=== PATIENT | female | born 1945 | race Caucasian/White ===

== ENCOUNTER 2019-03-12 15:18 | Inpatient (IN) ==
[2019-03-12] MEDS ORDERED: IOPAMIDOL 100 ML BOTTLE IV ONE (15:19)
[2019-03-12] MEDS: HYDROmorphone 2 MG/ML VIAL IV PRN ×3 (15:42→18:00)
[2019-03-12] MEDS ORDERED: IPRATROPIUM/ALBUTEROL 3 ML AMPUL.NEB NEB ONE (16:19)
--- NOTE | 2019-03-12 16:24 | Emergency Department Note ---
General Adult HPI - General Chief complaint: Rib Pain Stated complaint: Left Side Pain Time Seen by Provider: 03/12/19 15:30 Source: patient Mode of arrival: wheelchair Limitations: no limitations - History of Present Illness HPI Narrative: 73-year-old female complains of shortness of breath despite using her home 4 L of oxygen [id number]. She is got severe COPD and a history of esophageal cancer. She is having chest pain on the left radiates from the center of her chest up to her left shoulder. She states that it feels like the time she had a collapsed lung on the right. No fever. She saw her airport utility worker Dr. Jones last week - Related Data Home Medications Medication Instructions Recorded Confirmed atorvastatin 20 mg tablet 20 mg PO .COMPLEX 12/16/16 03/05/19 gabapentin 300 mg capsule 300 mg PO QID cap 12/16/16 03/05/19 levothyroxine 25 mcg tablet 25 mcg PO QDAY 12/16/16 03/05/19 nystatin 100,000 unit/gram topical 1 applic TOPICAL BID 12/16/16 03/05/19 cream nystatin 100,000 unit/mL oral 1,000,000 unit BUCCAL QID 12/16/16 03/05/19 suspension ondansetron 8 mg disintegrating 8 mg PO TID tab 12/16/16 03/05/19 tablet oxygen INTRANASAL 12/16/16 03/05/19 hydrocodone 10 mg-acetaminophen 1 tab PO ONCE PRN 01/12/17 03/05/19 325 mg tablet omeprazole 20 mg tablet,delayed 20 mg PO QDAY tab 03/05/19 03/05/19 release Previous Rx's Medication Instructions Recorded albuterol sulfate concentrate 2.5 2.5 mg INHALATION QHS PRN #60 each 10/11/18 mg/0.5 mL solution for nebulization chlorhexidine gluconate 0.12 % 15 ml MUCOUS MEM BID #900 ml 12/19/18 mouthwash fluticasone fur. 100 mcg-umeclid 1 inh INHALATION QDAY #180 each 12/19/18 62.5 mcg-vilant 25 mcg inhalat.powder albuterol sulfate 90 mcg/actuation 2 inh INHALATION Q4H PRN #1 each 02/15/19 breath activated powder inhaler prednisone 5 mg/5 mL oral solution 20 mg PO QDAY #200 ml 03/05/19 Allergies Allergy/AdvReac Type Severity Reaction Status Date / Time Milk Containing Products Allergy Severe Other Verified 03/05/19 15:00 Penicillins Allergy Severe SEVERE Verified 03/05/19 15:00 ITCHING ioversol [From OPTIRAY 320] Allergy Mild Hives Verified 03/05/19 15:00 carbamazepine [From TEGRETOL] AdvReac Intermediate LOSS OF Verified 03/05/19 15:00 SELF-AWARENESS Tetanus Vaccines and Toxoid AdvReac Mild INJ SITE Verified 03/05/19 15:00 SWELLING, AND JAW PAIN SILK TAPE AdvReac Mild BLISTERS, Uncoded 03/05/19 15:00 TEARS SKIN Review of Systems All systems ED: reviewed and negative except as stated. Past Medical History - Past Medical History Attestation: Yes: The following information was validated with the patient. [facility] Narrative: Family History (Last Reviewed 03/05/19 @ 15:19 by Maninder Jones MD) Mother Brain cancer Breast cancer Cervical cancer Father Alcoholism Son Multiple sclerosis Medical History (Last Reviewed 03/05/19 @ 15:19 by Maninder Jones MD) Bronchiectasis (Chronic) Cough (Chronic) Cough with hemoptysis (Chronic) Epigastric pain (Chronic) Pneumonia (Chronic) Personal history of malignant neoplasm of larynx (Chronic) Adjustment disorder with mixed anxiety and depressed mood (Chronic) COPD (chronic obstructive pulmonary disease) (Chronic) Other organic insomnia (Chronic) Other osteoporosis (Chronic) GERD (gastroesophageal reflux disease) (Chronic) Unspecified vitamin D deficiency (Chronic) Other specified anemias (Chronic) Dysphagia, oral phase (Chronic) Lumbago (Chronic) Decreased strength (Chronic) Constipation due to pain medication (Chronic) Pulmonary nodule (Chronic) Peripheral neuropathy (Chronic) Hypothyroidism (Chronic) Hypertension (Chronic) Pulmonary fibrosis (Chronic) Emphysema, unspecified (Chronic) Acute bronchitis (Chronic) Scoliosis deformity of spine (Chronic) Bowel obstruction (Resolved) Cholecystectomy planned (Resolved) Past Surgical History (Last Reviewed 03/05/19 @ 15:19 by Maninder Jones MD) No pertinent past surgical history (Chronic) History of appendectomy (Resolved) Hx of tonsillectomy (Resolved) Previous back surgery (Resolved) Medical history: Reports: COPD, hyperlipidemia, hypertension, hypothyroidism Surgical history ED: Reports: appendectomy, cholecystectomy, hysterectomy, orthopedic, other (Back surgery multiple), tonsillectomy, other (Thyroglossal duct cyst) - Social History smoking status: Current every day smoker Alcohol use: Reports: None Drug use: Reports: marijuana Physical Exam Thin female no acute distress. Normocephalic atraumatic. Conjunctive are clear sclerae white anicteric. No nasal discharge or congestion. Wearing mask oxygen 4 L. Oropharynx pink and moist. Posterior pharynx is clear. Neck is supple without lymphadenopathy or thyromegaly. Heart is regular rate and rhythm. Inferiorly displaced PMI. Lungs are basically clear to auscultation but she does have end expiratory wheeze worse on the left. I do not hear any rales. Abdomen is soft nontender nondistended except for the epigastric area which is mildly tender. No pedal edema. +2 radial pulse. Alert oriented able to answer questions appropriately Limitations: no limitations Course Vital Signs Temperature 98.7 F 03/12/19 15:19 Pulse Rate 83 03/12/19 15:19 Respiratory Rate 30 H 03/12/19 15:19 Blood Pressure 162/58 03/12/19 15:19 Pulse Oximetry (%) 99 03/12/19 15:19 Temperature 99.6 F H 03/12/19 16:00 Pulse Rate 66 03/12/19 17:38 Respiratory Rate 18 03/12/19 16:00 Blood Pressure 120/102 03/12/19 17:32 Pulse Oximetry (%) 95 03/12/19 17:38 Medical Decision Making - Lab Data Lab results reviewed: Yes I reviewed the patient's lab results. Result diagrams: 03/12/19 16:40 03/12/19 16:39 Lab Results 03/12/19 03/12/19 03/12/19 Range/Units 16:39 16:40 16:40 WBC 24.8 H (4.5-11.0) K/mcL RBC 4.60 (4.00-5.20) M/mcL Hgb 13.4 (12.0-15.0) g/dL Hct 40.6 (36.0-48.0) % POC Hct 39.0 (36.0-48.0) % MCV 88.1 (80.0-100.0) fL MCH 29.1 (26.0-34.0) pg MCHC 33.0 (31.0-36.0) g/dL RDW 17.4 H (11.5-14.5) % Plt Count 314 (140-440) K/mcL MPV 7.5 (7.4-10.4) fL Gran % 96.7 H (38.0-78.0) % Lymph % (Auto) 2.0 L (15.5-49.0) % Turner % (Auto) 1.3 (1.0-12.0) % Eos % (Auto) 0 (0.0-7.0) % Baso % (Auto) 0 (0.0-2.0) % Gran # 23.9 H (1.8-8.0) K/mcL Lymph # (Auto) 0.5 L (1.5-4.8) K/mcL Turner # (Auto) 0.3 (0.1-0.9) K/mcL Eos # (Auto) 0 (0.0-0.7) K/mcL Baso # (Auto) 0 (0.0-0.3) K/mcL VBG Lactic Acid 1.4 (0.5-2.0) mmol/L POC Sodium 136 (133-145) mmol/L Sodium 137 (133-145) mmol/L POC Potassium 4.2 (3.3-5.1) mmol/L Potassium 4.5 (3.3-5.1) mmol/L POC Chloride 94 L (96-108) mmol/L Chloride 91 L (96-108) mmol/L Carbon Dioxide 32 H (22-30) mmol/L POC Total CO2 31 H (22-30) mmol/L Anion Gap 14.0 (8-16) POC BUN 18 (8-23) mg/dl BUN 18 (8-23) mg/dl Creatinine 0.8 (0.6-1.1) mg/dl POC Creatinine 0.8 (0.6-1.1) mg/dl GFR Calculation 74 Glucose 98 (70-105) mg/dL POC Glucose 117 H (70-105) mg/dL Calcium 9.3 (8.6-10.4) mg/dl POC WB Ioniz Calcium 1.13 L (1.16-1.32) mmol/L Magnesium 1.9 (1.6-2.5) mg/dL Total Bilirubin 0.6 (0.0-1.0) mg/dL AST 27 (0-37) U/l ALT 17 (0-40) U/l Alkaline Phosphatase 65 (39-117) U/L Troponin T (0-0.03) ng/ml Total Protein 8.6 H (5.9-8.4) gm/dL Albumin 4.0 (3.2-5.2) gm/dL Globulin 4.6 H (2.2-3.7) gm/dL Albumin/Globulin Ratio 0.9 L (1.0-2.3) Procalcitonin (<0.10) ng/mL 03/12/19 03/12/19 Range/Units 16:40 16:40 WBC (4.5-11.0) K/mcL RBC (4.00-5.20) M/mcL Hgb (12.0-15.0) g/dL Hct (36.0-48.0) % POC Hct (36.0-48.0) % MCV (80.0-100.0) fL MCH (26.0-34.0) pg MCHC (31.0-36.0) g/dL RDW (11.5-14.5) % Plt Count (140-440) K/mcL MPV (7.4-10.4) fL Gran % (38.0-78.0) % Lymph % (Auto) (15.5-49.0) % Turner % (Auto) (1.0-12.0) % Eos % (Auto) (0.0-7.0) % Baso % (Auto) (0.0-2.0) % Gran # (1.8-8.0) K/mcL Lymph # (Auto) (1.5-4.8) K/mcL Turner # (Auto) (0.1-0.9) K/mcL Eos # (Auto) (0.0-0.7) K/mcL Baso # (Auto) (0.0-0.3) K/mcL VBG Lactic Acid (0.5-2.0) mmol/L POC Sodium (133-145) mmol/L Sodium (133-145) mmol/L POC Potassium (3.3-5.1) mmol/L Potassium (3.3-5.1) mmol/L POC Chloride (96-108) mmol/L Chloride (96-108) mmol/L Carbon Dioxide (22-30) mmol/L POC Total CO2 (22-30) mmol/L Anion Gap (8-16) POC BUN (8-23) mg/dl BUN (8-23) mg/dl Creatinine (0.6-1.1) mg/dl POC Creatinine (0.6-1.1) mg/dl GFR Calculation Glucose (70-105) mg/dL POC Glucose (70-105) mg/dL Calcium (8.6-10.4) mg/dl POC WB Ioniz Calcium (1.16-1.32) mmol/L Magnesium (1.6-2.5) mg/dL Total Bilirubin (0.0-1.0) mg/dL AST (0-37) U/l ALT (0-40) U/l Alkaline Phosphatase (39-117) U/L Troponin T < 0.01 (0-0.03) ng/ml Total Protein (5.9-8.4) gm/dL Albumin (3.2-5.2) gm/dL Globulin (2.2-3.7) gm/dL Albumin/Globulin Ratio (1.0-2.3) Procalcitonin 0.18 (<0.10) ng/mL ABG consistent with hyperventilation - Radiology Data Radiology results reviewed: Yes I reviewed the patient's radiology results. Chest x-ray with right rib series does not show acute findings. CT scan ordered CT scan shows left lower lobe infiltrate. Disposition Pt seen by WAREHOUSE REPRESENTATIVE/PA only: No Clinical Impression: Pneumonia Qualifiers: Pneumonia type: due to unspecified organism Laterality: left Lung location: lower lobe of lung Qualified Code(s): J18.1 - Lobar pneumonia, unspecified organism COPD (chronic obstructive pulmonary disease) Qualifiers: COPD type: unspecified COPD Qualified Code(s): J44.9 - Chronic obstructive pulmonary disease, unspecified Summary: Initial work-up was with x-ray but this was unrevealing. CT scan ordered along with laboratory. Continue oxygen CT showed left lower lobe pneumonia. Blood cultures started along with antibiotics. Blood gas shows compensation. Discussed case with Dr. Reveles. Patient needs inpatient treatment of COPD/left lower lobe pneumonia because of increased work of breathing. He agreed to accept patient Disposition: Xfer As Inpt ([facility] Condition: Fair Referrals: Josseline Kyle ARNP [Primary Care Provider] -
--- NOTE | 2019-03-12 16:30 | XRay Report ---
CLINICAL INFORMATION: right rib pain COMPARISON: Chest x-ray 03/05/2019 FINDINGS:Heart size, mediastinum and pulmonary vessels are normal. COPD changes again noted. Small infiltrate has developed in the lingular region. Small left pleural effusion noted. Left ribs are normal IMPRESSION: Moderate centrilobular emphysema changes. New moderate lingular infiltrate. Left ribs normal Interpreted and Authenticated by: Jin Foote 03/12/19
[2019-03-12 16:45] LABS: POC Blood Urea Nitrogen 18 mg/dl (8-23); POC CO2 31 mmol/L (22-30); POC Calcium, Ionized 1.13 mmol/L (1.16-1.32); POC Chloride 94 mmol/L (96-108); POC Creatinine 0.8 mg/dl (0.6-1.1); POC Glucose, Random 117 mg/dL (70-105); POC Potassium 4.2 mmol/L (3.3-5.1); POC Sodium 136 mmol/L (133-145)
[2019-03-12] MEDS ORDERED: diphenhydrAMINE 50 MG/ML VIAL IV ONE (17:05)
[2019-03-12 17:22] LABS: Basophils # (Auto) 0 K/mcL (0.0-0.3); Basophils % (Auto) 0 % (0.0-2.0); Eosinophils # (Auto) 0 K/mcL (0.0-0.7); Eosinophils % (Auto) 0 % (0.0-7.0); Granulocytes % (Auto) 96.7 % (38.0-78.0); Hematocrit 40.6 % (36.0-48.0); Hemoglobin 13.4 g/dL (12.0-15.0); Lymphocytes # (Auto) 0.5 K/mcL (1.5-4.8); Mean Cell Volume 88.1 fL (80.0-100.0); Mean Platelet Volume 7.5 fL (7.4-10.4); Monocytes # (Auto) 0.3 K/mcL (0.1-0.9); Monocytes % (Auto) 1.3 % (1.0-12.0); Platelet Count 314 K/mcL (140-440); Red Cell Distribution Width 17.4 % (11.5-14.5); WBC 24.8 K/mcL (4.5-11.0)
[2019-03-12 17:36] LABS: ALT/SGPT 17 U/l (0-40); AST/SGOT 27 U/l (0-37); Albumin/Globulin Ratio 0.9 (1.0-2.3); Alkaline Phosphatase 65 U/L (39-117); Bilirubin,Total 0.6 mg/dL (0.0-1.0); Blood Urea Nitrogen 18 mg/dl (8-23); Calcium 9.3 mg/dl (8.6-10.4); Carbon Dioxide 32 mmol/L (22-30); Chloride 91 mmol/L (96-108); Globulin 4.6 gm/dL (2.2-3.7); Glomerular Filtration Rate 74; Glucose 98 mg/dL (70-105)
[2019-03-12] MEDS ORDERED: LEVOFLOXACIN 500 MG/100 ML BAG IV ONE (18:23)
--- NOTE | 2019-03-12 18:28 | Cat Scan Report ---
CLINICAL INFORMATION: COPD and pulmonary fibrosis. Dyspnea COMPARISON: 06/05/[address] TECHNIQUE: 80 cc of Isovue-370 were injected intravenously, and 25 seconds later, 0.625 mm helical slices were obtained from the lung apices through the bases. Following reconstruction, 2.5 mm sagittal, coronal and axial reformations were processed and reviewed at lung, mediastinal and bone windows. 7 mm axial MIPS were also obtained to optimize pulmonary nodule detection. The exam was performed using radiation dose optimization techniques including, but not limited to, automated exposure control, adjustment of the mA and/or kV according to patient size and use of iterative reconstruction technique. FINDINGS: Moderate centrilobular emphysema featuring chronic bronchitis (wall thickening of the bronchi and elevated lung volumes) with multiple bullae predominantly in the upper lobes with show slight progression. Complete chronic right middle lobe atelectasis is seen as before. Moderate consolidated infiltrate in the posterior left lower lobe is new from previous study. There are scattered interstitial fibrosis in both lower lobes. A 6 mm nodule in the anterior segment right upper lobe, image 35, demonstrates long-term stability. A 6 mm subpulmonic lymph node in the anterior segment right upper lobe is also unchanged. There are no new or enlarging nodules. No effusions. Mediastinal windows show mild enlargement of the central pulmonary arteries: the main pulmonary diameter is 3.7 cm compatible with pulmonary hypertension. The thoracic aorta is normal diameter with diffuse intimal thickening. Mildly enlarged lymph nodes in lower mediastinum including the pericarinal AP window and subcarinal regions ranging up to 18 mm in the precarinal region. These demonstrate long-term stability and presumably benign reactive lymph nodes. Esophagus is grossly normal. No thyroid abnormality. Mild old compression fractures upper thoracic spine are stable. Images should the superior abdomen show no abnormality. PEG tube is properly positioned through the anterior wall of the gastric body with the pigtail in the gastric lumen. IMPRESSION: 1. Moderate consolidated infiltrate, likely pneumonia, in the posterior left lower lobe. This is new from chest CT nearly 2 years ago. 2. Moderate centrilobular emphysema 3. Mild central pulmonary enlargement patible with pulmonary hypertension. 4. Complete chronic right middle lobe atelectasis - stable. 5. Right lung nodules demonstrate long-term stability no evidence of pulmonary malignancy. 6. Diminutive thyroid. Please correlate with TSH Interpreted and Authenticated by: Jin Foote 03/12/19
[2019-03-12] MEDS ORDERED: NICOTINE 14 MG PATCH TOPICAL ONE (18:54)
--- NOTE | 2019-03-12 20:09 | Internal Med History&Physical ---
Medical - H&P: HPI Patient information: Note initiated : 03/12/19 at 8:05 pm Service Date, if different from initiated Date: [] Patient: Kassidy Dawson a 73 y/o F admitted on for Left Side Pain. Chief Complaint: [] History of present illness: Ms. Dawson is a 73 year old F Presents the ED with left lateral chest wall pain. And shortness of breath secondary to pleuritic chest pain. She recently saw Dr. Jones about a week ago and was diagnosed with COPD exacerbation and started on a steroid taper. At that time she had a cough that was worse and she felt quite wheezy, both of which are improving. However this morning she woke up with a sharp achy pain left lateral chest wall that radiated up into the upper chest wall. Because of the severity of it she could not take a deep breath and thus became short of breath. She is able to maintain her oxygen on her typical 4 L however it is very painful to breathe. Work-up in the ED showed a leukocytosis of 25, however she has been on prednisone for the past 5 days. She is felt chilled but no fevers. She is tachypneic in the ED. Troponin was unremarkable and lactate was okay. Procalcitonin unremarkable. ABG with pH 7.48 CO2 45 Chest x-ray was done and then subsequent CT which showed a moderate consolidated infiltrate posterior left lower lobe. Admission was requested given the severity of her symptoms and the debilitated chronic state of her lungs. She complains of headache as well but no other complaints. Denies any leg pain or swelling, no history of blood clots, she is not tachycardic and not hypoxic beyond her baseline. Review of Systems: pertinent positives as above. denies fever/nausea/vomiting/abdominal pain//diarrhea. Remaining 10 point review of system reviewed negative Medical - H&P: PMH Medical history: Medical History (Last Reviewed 03/05/19 @ 15:19 by Maninder Jones MD) Bronchiectasis (Chronic) Cough (Chronic) Cough with hemoptysis (Chronic) Epigastric pain (Chronic) Pneumonia (Chronic) Personal history of malignant neoplasm of larynx (Chronic) Adjustment disorder with mixed anxiety and depressed mood (Chronic) COPD (chronic obstructive pulmonary disease) (Chronic) Other organic insomnia (Chronic) Other osteoporosis (Chronic) GERD (gastroesophageal reflux disease) (Chronic) Unspecified vitamin D deficiency (Chronic) Other specified anemias (Chronic) Dysphagia, oral phase (Chronic) Lumbago (Chronic) Decreased strength (Chronic) Constipation due to pain medication (Chronic) Pulmonary nodule (Chronic) Peripheral neuropathy (Chronic) Hypothyroidism (Chronic) Hypertension (Chronic) Pulmonary fibrosis (Chronic) Emphysema, unspecified (Chronic) Acute bronchitis (Chronic) Scoliosis deformity of spine (Chronic) Bowel obstruction (Resolved) Cholecystectomy planned (Resolved) Past Surgical History (Last Reviewed 03/05/19 @ 15:19 by Maninder Jones MD) No pertinent past surgical history (Chronic) History of appendectomy (Resolved) Hx of tonsillectomy (Resolved) Previous back surgery (Resolved) Family History (Last Reviewed 03/05/19 @ 15:19 by Maninder Jones MD) Mother Brain cancer Breast cancer Cervical cancer Father Alcoholism Son Multiple sclerosis Social History (Last Updated 03/05/19 @ 15:30 by Maninder Jones MD) Smokes half pack cigarettes per day Denies alcohol use Ambulates with a walker and is quite sedentary Lives with family Medical - H&P: Meds Home Medications Medication Instructions Recorded Confirmed Type atorvastatin 20 mg tablet 20 mg PO .COMPLEX 12/16/16 03/05/19 History gabapentin 300 mg capsule 300 mg PO QID cap 12/16/16 03/05/19 History levothyroxine 25 mcg tablet 25 mcg PO QDAY 12/16/16 03/05/19 History nystatin 100,000 unit/gram topical 1 applic TOPICAL BID 12/16/16 03/05/19 History cream nystatin 100,000 unit/mL oral 1,000,000 unit BUCCAL QID 12/16/16 03/05/19 History suspension ondansetron 8 mg disintegrating 8 mg PO TID tab 12/16/16 03/05/19 History tablet oxygen INTRANASAL 12/16/16 03/05/19 History hydrocodone 10 mg-acetaminophen 1 tab PO ONCE PRN 01/12/17 03/05/19 History 325 mg tablet albuterol sulfate concentrate 2.5 2.5 mg INHALATION QHS PRN #60 each 10/11/18 03/05/19 Rx mg/0.5 mL solution for nebulization chlorhexidine gluconate 0.12 % 15 ml MUCOUS MEM BID #900 ml 12/19/18 03/05/19 Rx mouthwash fluticasone fur. 100 mcg-umeclid 1 inh INHALATION QDAY #180 each 12/19/1809/18 Rx 62.5 mcg-vilant 25 mcg inhalat.powder albuterol sulfate 90 mcg/actuation 2 inh INHALATION Q4H PRN #1 each 02/15/19 03/05/19 Rx breath activated powder inhaler omeprazole 20 mg tablet,delayed 20 mg PO QDAY tab 03/05/19 03/05/19 History release prednisone 5 mg/5 mL oral solution 20 mg PO QDAY #200 ml 03/05/19 03/05/19 Rx Allergies Allergy/AdvReac Type Severity Reaction Status Date / Time Milk Containing Products Allergy Severe Other Verified 03/05/19 15:00 Penicillins Allergy Severe SEVERE Verified 03/05/19 15:00 ITCHING ioversol [From OPTIRAY 320] Allergy Mild Hives Verified 03/05/19 15:00 carbamazepine [From TEGRETOL] AdvReac Intermediate LOSS OF Verified 03/05/19 15:00 SELF-AWARENESS Tetanus Vaccines and Toxoid AdvReac Mild INJ SITE Verified 03/05/19 15:00 SWELLING, AND JAW PAIN SILK TAPE AdvReac Mild BLISTERS, Uncoded 03/05/19 15:00 TEARS SKIN Medical - H&P: Exam - Constitutional Vitals: Temp Pulse Resp BP Pulse Ox 99.6 F H 66 18 121/70 95 03/12/19 16:00 03/12/19 17:38 03/12/19 16:00 03/12/19 19:31 03/12/19 17:38 Exam: General: Alert, Awake, No acute Distress Eyes/N/T: EOMI, PEERL, DMM Head/Neck: neck supple, normocephalic atraumatic CV: RRR, No murmurs, normal s1/s2 Pulm: Mild fine rales throughout and increased rhonchi rales left base, no wheezing noted abd: soft, nontender, +BS x4 Ext: no clubbing/cyanosis/edema Neuro: Alert, no focal deficits, moves all extremities, CN 2-12 grossly intact, symmetrical strength b/l upper/lower, sensations intact b/l upper/lower Skin: warm/dry Medical - H&P: Reslt - Labs CBC & Chem 7: 03/12/19 16:40 03/12/19 16:39 Labs: Short CBC 03/12/19 Range/Units 16:40 WBC 24.8 H (4.5-11.0) K/mcL Hgb 13.4 (12.0-15.0) g/dL Hct 40.6 (36.0-48.0) % Plt Count 314 (140-440) K/mcL BMP 03/12/19 16:39 Sodium 137 Potassium 4.5 Chloride 91 L Carbon Dioxide 32 H BUN 18 Creatinine 0.8 Glucose 98 Calcium 9.3 Cardiac Enzymes 03/12/19 Range/Units 16:40 Troponin T < 0.01 (0-0.03) ng/ml Liver Function 03/12/19 Range/Units 16:39 Total Bilirubin 0.6 (0.0-1.0) mg/dL AST 27 (0-37) U/l ALT 17 (0-40) U/l Alkaline Phosphatase 65 (39-117) U/L Albumin 4.0 (3.2-5.2) gm/dL - Impressions CT with moderate dense consolidation of left lower lobe Medical - H&P: A/P - Narrative A/P Narrative: A: *PNA (LLL) w/Pleuritic left lower chest wall pain: *Chronic respiratory failure with hypoxia/hypercapnia: *Metabolic alkalosis w/concomitant and respiratory acidosis: 2/2 above *Advanced COPD/Emphysema (4L O2 at home): *Bronchiectasis: *Pulmonary fibrosis: *GERD: *Chronic pain: *Hypothyroidism: * P: -Rocephin/azithromycin -Pending BC/SC -PRN and scheduled nebs -IS/Acapella, RT support -Continue prednisone -Check manual differential and CRP - - -ppx: Lovenox full code
[2019-03-12] MEDS ORDERED: ACETAMINOPHEN 325 MG TABLET PO PRN (20:52)
[2019-03-12] MEDS ORDERED: IPRATROPIUM/ALBUTEROL 3 ML AMPUL.NEB NEB PRN (20:52)
[2019-03-12] MEDS ORDERED: 0.9 % SODIUM CHLORIDE 1,000 ML IV SCH (20:52)
[2019-03-12] MEDS ORDERED: MAGNESIUM HYDROXIDE 30 ML ORAL.SUSP PO PRN (20:52)
[2019-03-12] MEDS ORDERED: BISACODYL 10 MG SUPP.RECT PR PRN (20:52)
[2019-03-12] MEDS ORDERED: ONDANSETRON 4 MG/2 ML VIAL IV PRN (20:52)
[2019-03-12] MEDS ORDERED: PROMETHAZINE 25 MG/ML VIAL IV PRN (20:52)
[2019-03-12] MEDS: IPRATROPIUM/ALBUTEROL 3 ML AMPUL.NEB NEB SCH (21:06)
[2019-03-12 22:00] LABS: Anisocytosis 1+ (NONE SEEN); Band Neutrophils % 2 % (0-10); Lymphocytes % 3 % (15-49); Monocytes % (Manual) 5 % (1-12); Platelet Estimate NORMAL (NORMAL); RBC Morphology ABNORMAL (NORMAL); Segmented Neutrophils % 90 % (38-78)
[2019-03-12] MEDS ORDERED: cefTRIAXone 2 GM VIAL ONE (22:16)
[2019-03-12] MEDS: 0.9 % SODIUM CHLORIDE 10 ML SYRINGE IV SCH (22:23)
[2019-03-12] MEDS: GABAPENTIN 300 MG CAPSULE PO SCH (22:26)
[2019-03-12] MEDS: guaiFENesin 600 MG TAB.SR.12H PO SCH (22:26)
[2019-03-12] MEDS: cefTRIAXone 2 GM in DEXTROSE 5% IN WATER 50 ML IV SCH (23:19)
[2019-03-13] MEDS: AZITHROMYCIN 500 MG in DEXTROSE 5% IN WATER 250 ML IV SCH ×2 (00:34→21:16)
[2019-03-13] MEDS: HYDROcodone/APAP 10/325MG TABLET PO SCH ×5 (00:38→23:54)
[2019-03-13] MEDS: IPRATROPIUM/ALBUTEROL 3 ML AMPUL.NEB NEB SCH ×3 (04:57→19:45)
[2019-03-13] MEDS: 0.9 % SODIUM CHLORIDE 10 ML SYRINGE IV SCH ×3 (04:58→22:05)
[2019-03-13 05:59] LABS: Basophils # (Auto) 0 K/mcL (0.0-0.3); Basophils % (Auto) 0.3 % (0.0-2.0); Eosinophils # (Auto) 0.1 K/mcL (0.0-0.7); Eosinophils % (Auto) 0.8 % (0.0-7.0); Granulocytes % (Auto) 71.3 % (38.0-78.0); Hematocrit 32.2 % (36.0-48.0); Hemoglobin 10.6 g/dL (12.0-15.0); Lymphocytes # (Auto) 1.7 K/mcL (1.5-4.8); Lymphocytes % (Auto) 15.6 % (15.5-49.0); Mean Cell Volume 89.6 fL (80.0-100.0); Mean Platelet Volume 7.3 fL (7.4-10.4); Monocytes # (Auto) 1.3 K/mcL (0.1-0.9); Platelet Count 252 K/mcL (140-440); RBC 3.59 M/mcL (4.00-5.20); Red Cell Distribution Width 17.3 % (11.5-14.5); WBC 10.9 K/mcL (4.5-11.0)
[2019-03-13 06:39] LABS: ALT/SGPT 12 U/l (0-40); AST/SGOT 11 U/l (0-37); Albumin/Globulin Ratio 0.8 (1.0-2.3); Alkaline Phosphatase 53 U/L (39-117); Bilirubin,Direct < 0.2 mg/dL (0.0-0.3); Bilirubin,Total 0.2 mg/dL (0.0-1.0); Blood Urea Nitrogen 21 mg/dl (8-23); Calcium 8.3 mg/dl (8.6-10.4); Carbon Dioxide 28 mmol/L (22-30); Chloride 97 mmol/L (96-108); Globulin 3.7 gm/dL (2.2-3.7); Glomerular Filtration Rate 87; Glucose 113 mg/dL (70-105); Lactate Dehydrogenase 107 U/L (94-250); Triglycerides 254 mg/dl (<150); Uric Acid 3.6 mg/dL (2.5-8.0)
[2019-03-13] MEDS: LEVOTHYROXINE 25 MCG TABLET PO SCH (07:08)
[2019-03-13] MEDS: predniSONE 20 MG TABLET PO SCH (07:08)
--- NOTE | 2019-03-13 07:16 | Internal Med Progress Note ---
Medical - PN: Subj Patient information: Note initiated : 03/13/19 at 7:10 am Service Date, if different from initiated Date: [] Patient: Kassidy Dawson a 73 y/o F admitted on 03/12/19 for Left Side Pain. Chief Complaint: [] Interval history: Ms. Dawson is a 73 year old F Presents the ED with left lateral chest wall pain. And shortness of breath secondary to pleuritic chest pain. She recently saw Dr. Jones about a week ago and was diagnosed with COPD exacerbation and started on a steroid taper. At that time she had a cough that was worse and she felt quite wheezy, both of which are improving. However this morning she woke up with a sharp achy pain left lateral chest wall that radiated up into the upper chest wall. Because of the severity of it she could not take a deep breath and thus became short of breath. She is able to maintain her oxygen on her typical 4 L however it is very painful to breathe. Work-up in the ED showed a leukocytosis of 25, however she has been on prednisone for the past 5 days. She is felt chilled but no fevers. She is tachypneic in the ED. Troponin was unremarkable and lactate was okay. Procalcitonin unremarkable. ABG with pH 7.48 CO2 45 Chest x-ray was done and then subsequent CT which showed a moderate consolidated infiltrate posterior left lower lobe. Admission was requested given the severity of her symptoms and the debilitated chronic state of her lungs. She complains of headache as well but no other complaints. Denies any leg pain or swelling, no history of blood clots, she is not tachycardic and not hypoxic beyond her baseline. 03/13 Feeling much better today. Feels like she can expand her lungs much better. Shortness of breath is 50% better. She is able to cough out phlegm now. Review of Systems: denies headache/fever/chills/nausea/vomiting/chest or abdominal pain/diarrhea. Otherwise see above. - Constitutional Vitals: Vital Signs Temp Pulse Resp BP Pulse Ox 97.5 F 63 16 105/53 95 03/13/19 03:40 03/13/19 03:40 03/13/19 03:40 03/13/19 03:40 03/13/19 03:40 Period Temp Pulse Resp BP Sys/Kelly Pulse Ox Last 24 Hr 97.5 F-99.6 F 55-83 16-30 105-162/53-106 94-100 Intake and Output 03/12/19 03/13/19 03/13/19 21:59 05:59 13:59 Intake Total 100 950 Output Total 350 Balance 100 600 Weight 55.928 kg Intake & Output: Intake & Output 03/12/19 03/13/19 03/13/19 21:59 05:59 13:59 Intake Total 100 950 Output Total 350 Balance 100 600 Weight 55.928 kg Intake: IV 100 Tube Feeding 950 Output: Void Amount 350 Exam: General: Alert, Awake, No acute Distress Eyes/N/T: EOMI, Head/Neck: neck supple, CV: RRR, No murmurs, Pulm: Improved rhonchi rales left base, no wheezing noted abd: soft, nontender, +BS x4 Ext: no clubbing/cyanosis/edema Neuro: Alert, no focal deficits, moves all extremities, Skin: warm/dry Medical - PN: Obj Da - Labs CBC & Chem 7: 03/13/19 04:25 03/13/19 04:25 Labs: Abnormal Lab Results 03/13/19 03/13/19 03/12/19 04:25 04:25 20:20 WBC RBC 3.59 L Hgb 10.6 L Hct 32.2 L RDW 17.3 H MPV 7.3 L Gran % Lymph % (Auto) Gran # Lymph # (Auto) [place] # (Auto) 1.3 H Seg Neutrophils % Lymphocytes % Anisocytosis POC Chloride Chloride Carbon Dioxide POC Total CO2 Glucose 113 H POC Glucose Calcium 8.3 L POC WB Ioniz Calcium C-Reactive Protein Total Protein Albumin 3.0 L Globulin Albumin/Globulin Ratio 0.8 L Triglycerides 254 H Ur Strep pneumoniae Ag Positive A 03/12/19 03/12/19 03/12/19 16:49 16:49 16:40 WBC 24.8 H RBC Hgb Hct RDW 17.4 H MPV Gran % 96.7 H Lymph % (Auto) 2.0 L Gran # 23.9 H Lymph # (Auto) 0.5 L [place] # (Auto) Seg Neutrophils % 90 H Lymphocytes % 3 L Anisocytosis 1+ A POC Chloride Chloride Carbon Dioxide POC Total CO2 Glucose POC Glucose Calcium POC WB Ioniz Calcium C-Reactive Protein 3.5 H Total Protein Albumin Globulin Albumin/Globulin Ratio Triglycerides Ur Strep pneumoniae Ag 03/12/19 16:39 WBC RBC Hgb Hct RDW MPV Gran % Lymph % (Auto) Gran # Lymph # (Auto) [place] # (Auto) Seg Neutrophils % Lymphocytes % Anisocytosis POC Chloride 94 L Chloride 91 L Carbon Dioxide 32 H POC Total CO2 31 H Glucose POC Glucose 117 H Calcium POC WB Ioniz Calcium 1.13 L C-Reactive Protein Total Protein 8.6 H Albumin Globulin 4.6 H Albumin/Globulin Ratio 0.9 L Triglycerides Ur Strep pneumoniae Ag Meds: Medications Acetaminophen (Tylenol) 650 mg PO Q6HP PRN PRN Reason: PAIN/FEVER > 101 Hydrocodone Bitart/Acetaminophen ([place] 10/325mg) 2 tab PO Q6 [facility] Last Admin: 03/13/19 05:52 Dose: 2 tab Documented by: Albuterol/Ipratropium (Duoneb) 3 ml NEB Q4HRT PRN PRN Reason: Bronchospasm Albuterol/Ipratropium (Duoneb) 3 ml NEB Q8H [facility] Last Admin: 03/13/19 04:57 Dose: 3 ml Documented by: Atorvastatin Calcium (Lipitor) 20 mg PO DAILY [facility] Bisacodyl (Dulcolax) 10 mg [place] Q2-3DAYS PRN PRN Reason: Constipation Enoxaparin Sodium (Lovenox) 40 mg SQ DAILY [facility] Gabapentin (Neurontin) 300 mg PO QID [facility] Last Admin: 03/12/19 22:26 Dose: 300 mg Documented by: Guaifenesin (Mucinex) 1,200 mg PO BID [facility] Last Admin: 03/12/19 22:26 Dose: 1,200 mg Documented by: Azithromycin 500 mg/ Dextrose 250 mls @ 250 mls/hr IV Q24H [facility]; Protocol Stop: 03/14/19 21:59 Last Admin: 03/13/19 00:34 Dose: 250 mls/hr Documented by: Ceftriaxone Sodium 2 gm/ (Dextrose) 50 mls @ 100 mls/hr IV Q24H [facility] Last Admin: 03/12/19 23:19 Dose: Not Given Documented by: Levothyroxine Sodium (Synthroid) 25 mcg PO ACB [facility] Magnesium Hydroxide (Milk Of Magnesia) 30 ml PO DAILYP PRN PRN Reason: Constipation Morphine Sulfate (Morphine) 1 - 3 mg IV Q3HP PRN PRN Reason: PAIN LEVEL > 6 Last Admin: 03/13/19 04:57 Dose: 2 mg Documented by: Ondansetron HCl (Zofran) 4 mg IV Q6HP PRN PRN Reason: Nausea And Vomiting Trelegy Ellipta 1 (Inh) 1 dose INH QDAY [facility] Pneumococcal Polyvalent Vaccine (Pneumovax 23) 0.5 ml IM .ONCE ONE Stop: 03/13/19 10:01 Prednisone (Prednisone) 20 mg PO [facility] Promethazine HCl (Phenergan) 12.5 mg IV Q6HP PRN PRN Reason: Nausea And Vomiting Sodium Chloride (Saline Flush) 10 ml IV Q8 [facility] Last Admin: 03/13/19 04:58 Dose: Not Given Documented by: Medical - PN: A/P - Time Spent With Patient Total time spent is greater than 50% in coordination of care (as documented) at patient's floor/unit and/or counseling patient: - Narrative A/P Narrative: A: *Strep pne. 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 Jones, currently on steroid taper by him *Bronchiectasis: *Pulmonary fibrosis: *GERD: *Chronic pain: *Hypothyroidism: *Tobacco abuse: P: -Rocephin/azithromycin -Pending BC/SC -PRN and scheduled nebs -IS/Acapella, RT support -Continue prednisone - -Smoking cessation counseling -ppx: Lovenox full code Medical - PN: Qual - VTE Deep Vein Thrombosis/Pulmonary Embolism Present on Admission: No
[2019-03-13] MEDS: GABAPENTIN 300 MG CAPSULE PO SCH ×4 (08:59→21:16)
[2019-03-13] MEDS: ENOXAPARIN 40 MG/0.4 ML SYRINGE SQ SCH (08:59)
[2019-03-13] MEDS: guaiFENesin 600 MG TAB.SR.12H PO SCH ×2 (08:59→21:15)
[2019-03-13] MEDS: ATORVASTATIN 20 MG TABLET PO SCH (08:59)
--- NOTE | 2019-03-13 09:14 | Discharge Summary ---
Medical - DS: Prov Patient information: Note initiated : 03/13/19 at 9:12 am Service Date, if different from initiated Date: [] Patient: Kassidy Dawson 73 y/o F admitted on 03/12/19 for Left Side Pain. Chief Complaint: [] Date of admission: 03/12/19 20:49 Discharge date: 03/14/19 Primary care physician: Josseline Kyle Consults: 03/12/19 Consult to Physician [CONS] Stat Comment: Consulting Provider: Xavier Reveles Reason For Exam: Physician to Consult Medical - DS: Meds - Discharge Medications Prescriptions: Levofloxacin [Levaquin] 750 mg PO DAILY #4 tab Active and Home Medications: Home Medications atorvastatin 20 mg tablet 20 mg PO DAILY 12/16/16 [History Confirmed 03/12/19 Last Taken 03/11/19 08:00] gabapentin 300 mg capsule 300 mg PO QID cap 12/16/16 [History Confirmed 03/12/19 Last Taken 03/11/19 21:00] levothyroxine 25 mcg tablet 25 mcg PO QDAY 12/16/16 [History Confirmed 03/12/19 Last Taken 03/11/19 08:00] nystatin 100,000 unit/gram topical cream 1 applic TOPICAL BID PRN 12/16/16 [History Confirmed 03/12/19 Last Taken 06/19/17] nystatin 100,000 unit/mL oral suspension 100,000 unit BUCCAL QID PRN 12/16/16 [History Confirmed 03/12/19 Last Taken 06/19/17] ondansetron 8 mg disintegrating tablet 8 mg PO TID tab 12/16/16 [History Confirmed 03/12/19 Last Taken 02/26/19] oxygen 4 inh INH CONT 12/16/16 [History Confirmed 03/12/19 Last Taken 03/12/19 21:15] hydrocodone 10 mg-acetaminophen 325 mg tablet 2 tab PO Q6H 01/12/17 [History Confirmed 03/12/19 Last Taken 03/11/19 21:00] albuterol sulfate concentrate 2.5 mg/0.5 mL solution for nebulization 2.5 mg INHALATION QHS PRN #60 each 10/11/18 [Rx Confirmed 03/12/19 Last Taken 03/03/19] chlorhexidine gluconate 0.12 % mouthwash 15 ml MUCOUS MEM BID #900 ml 12/19/18 [Rx Confirmed 03/12/19 Last Taken 03/11/19 21:00] fluticasone fur. 100 mcg-umeclid 62.5 mcg-vilant 25 mcg inhalat.powder 1 inh INHALATION QDAY #180 each 12/19/18 [Rx Confirmed 03/12/19 Last Taken 03/11/19 08:00] albuterol sulfate 90 mcg/actuation breath activated powder inhaler 2 inh INHALATION Q4H PRN #1 each 02/15/19 [Rx Confirmed 03/12/19 Last Taken 03/11/19 12:00] omeprazole 20 mg tablet,delayed release 20 mg PO QDAY tab 03/05/19 [History Confirmed 03/12/19 Last Taken 03/11/19 08:00] prednisone 5 mg/5 mL oral solution 20 mg PO QDAY #200 ml 03/05/19 [Rx Confirmed 03/12/19 Last Taken 03/12/19 08:00] guaiFENesin [Guaifenesin] 1,200 mg PO BID 03/12/19 [History Confirmed 03/12/19 Last Taken 03/11/19 21:00] Medical - DS: Hosp Hospital Course: Ms. Dawson is a 73 year old F Presents the ED with left lateral chest wall pain. And shortness of breath secondary to pleuritic chest pain. She recently saw Dr. Jones about a week ago and was diagnosed with COPD exacerbation and started on a steroid taper. At that time she had a cough that was worse and she felt quite wheezy, both of which are improving. However this morning she woke up with a sharp achy pain left lateral chest wall that radiated up into the upper chest wall. Because of the severity of it she could not take a deep breath and thus became short of breath. She is able to maintain her oxygen on her typical 4 L however it is very painful to breathe. Work-up in the ED showed a leukocytosis of 25, however she has been on prednisone for the past 5 days. She is felt chilled but no fevers. She is tachypneic in the ED. Troponin was unremarkable and lactate was okay. Procalcitonin unremarkable. ABG with pH 7.48 CO2 45 Chest x-ray was done and then subsequent CT which showed a moderate consolidated infiltrate posterior left lower lobe. Admission was requested given the severity of her symptoms and the debilitated chronic state of her lungs. She complains of headache as well but no other complaints. Denies any leg pain or swelling, no history of blood clots, she is not tachycardic and not hypoxic beyond her baseline. 03/13 Feeling much better today. Feels like she can expand her lungs much better. Shortness of breath is 50% better. She is able to cough out phlegm now. 03/14 Continue continues to feel much improved. Doing well stable for discharge. On lower oxygen setting at home. A: *Strep pne. 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 Jones, currently on steroid taper by him *Bronchiectasis: *Pulmonary fibrosis: *GERD: *Chronic pain: *Hypothyroidism: *Tobacco abuse: Discharge diagnosis: Strep pneumonia chronic respiratory failure with hypoxia hypercapnia Secondary discharge diagnosis: Metabolic alkalosis with respiratory acidosis Advanced COPD emphysema Bronchiectasis pulmonary fibrosis GERD chronic pain hypothyroidism tobacco abuse - Time Spent with Patient Total time spent providing and/or coordinating discharge services: Greater than 30 minutes Medical - DS: Exam - Constitutional Vitals: Vital Signs Temp Pulse Pulse Resp BP BP Pulse Ox 03/13/19 07:53 73 03/13/19 07:45 98.5 F 73 18 99/51 95 03/13/19 03:40 97.5 F 63 16 105/53 95 03/13/19 00:03 97.9 F 59 L 22 131/66 100 03/12/19 21:35 96 03/12/19 21:23 55 L 18 97 03/12/19 21:22 97 03/12/19 21:05 61 18 03/12/19 20:53 98.6 F 56 L 24 H 116/62 96 03/12/19 20:31 98.4 F 74 22 127/60 94 03/12/19 20:30 98.4 F 74 22 94 03/12/19 20:01 127/60 03/12/19 19:31 121/70 03/12/19 19:01 131/66 03/12/19 18:31 116/62 09/10/19 18:20 129/65 03/12/19 17:38 66 95 03/12/19 17:32 70 120/102 98 03/12/19 17:26 78 153/106 100 03/12/19 17:01 63 134/64 98 03/12/19 16:46 61 117/55 98 03/12/19 16:45 60 112/55 98 03/12/19 16:00 99.6 F H 67 18 112/55 99 03/12/19 15:46 68 23 H 123/67 99 03/12/19 15:43 26 H 03/12/19 15:42 72 27 H 120/67 100 03/12/19 15:19 98.7 F 83 30 H 162/58 99 Intake and Output 03/12/19 03/13/19 03/13/19 21:59 05:59 13:59 Intake Total 100 950 Output Total 350 Balance 100 600 Intake: IV 100 Tube Feeding 950 Output: Void Amount 350 Other: Weight 55.928 kg Medical - DS: Data Labs on day of discharge: Labs from last 24 hours 03/13/19 03/13/19 03/12/19 04:25 04:25 20:20 WBC 10.9 RBC 3.59 L Hgb 10.6 L Hct 32.2 L POC Hct MCV 89.6 MCH 29.6 MCHC 33.0 RDW 17.3 H Plt Count 252 MPV 7.3 L Gran % 71.3 Lymph % (Auto) 15.6 [place] % (Auto) 12.0 Eos % (Auto) 0.8 Baso % (Auto) 0.3 Gran # 7.8 Lymph # (Auto) 1.7 [place] # (Auto) 1.3 H Eos # (Auto) 0.1 Baso # (Auto) 0 Total Counted Seg Neutrophils % Band Neutrophils % Lymphocytes % Monocytes % (Manual) Platelet Estimate RBC Morphology Anisocytosis VBG Lactic Acid POC Sodium Sodium 136 POC Potassium Potassium 3.8 POC Chloride Chloride 97 Carbon Dioxide 28 POC Total CO2 Anion Gap 11.0 POC BUN BUN 21 Creatinine 0.7 POC Creatinine GFR Calculation 87 Glucose 113 H POC Glucose Uric Acid 3.6 Calcium 8.3 L POC WB Ioniz Calcium Phosphorus 3.0 Magnesium 1.8 Total Bilirubin 0.2 Direct Bilirubin < 0.2 GGT 13 AST 11 ALT 12 Alkaline Phosphatase 53 Lactate Dehydrogenase 107 Troponin T C-Reactive Protein Total Protein 6.7 Albumin 3.0 L Globulin 3.7 Albumin/Globulin Ratio 0.8 L Triglycerides 254 H Procalcitonin Mycoplasma pneumon IgG Mycoplasma pneumon IgM Ur Strep pneumoniae Ag Positive A 03/12/19 03/12/19 03/12/19 20:20 16:49 16:49 WBC RBC Hgb Hct POC Hct MCV MCH MCHC RDW Plt Count MPV Gran % Lymph % (Auto) [place] % (Auto) Eos % (Auto) Baso % (Auto) Gran # Lymph # (Auto) [place] # (Auto) Eos # (Auto) Baso # (Auto) Total Counted 100 Seg Neutrophils % 90 H Band Neutrophils % 2 Lymphocytes % 3 L Monocytes % (Manual) 5 Platelet Estimate Normal RBC Morphology Abnormal Anisocytosis 1+ A VBG Lactic Acid POC Sodium Sodium POC Potassium Potassium POC Chloride Chloride Carbon Dioxide POC Total CO2 Anion Gap POC BUN BUN Creatinine POC Creatinine GFR Calculation Glucose POC Glucose Uric Acid Calcium POC WB Ioniz Calcium Phosphorus Magnesium Total Bilirubin Direct Bilirubin GGT AST ALT Alkaline Phosphatase Lactate Dehydrogenase Troponin T C-Reactive Protein 3.5 H Total Protein Albumin Globulin Albumin/Globulin Ratio Triglycerides Procalcitonin Mycoplasma pneumon IgG Pending Mycoplasma pneumon IgM Pending Ur Strep pneumoniae Ag 03/12/19 03/12/19 03/12/19 16:40 16:40 16:40 WBC RBC Hgb Hct POC Hct MCV MCH MCHC RDW Plt Count MPV Gran % Lymph % (Auto) [place] % (Auto) Eos % (Auto) Baso % (Auto) Gran # Lymph # (Auto) [place] # (Auto) Eos # (Auto) Baso # (Auto) Total Counted Seg Neutrophils % Band Neutrophils % Lymphocytes % Monocytes % (Manual) Platelet Estimate RBC Morphology Anisocytosis VBG Lactic Acid 1.4 POC Sodium Sodium POC Potassium Potassium POC Chloride Chloride Carbon Dioxide POC Total CO2 Anion Gap POC BUN BUN Creatinine POC Creatinine GFR Calculation Glucose POC Glucose Uric Acid Calcium POC WB Ioniz Calcium Phosphorus Magnesium Total Bilirubin Direct Bilirubin GGT AST ALT Alkaline Phosphatase Lactate Dehydrogenase Troponin T < 0.01 C-Reactive Protein Total Protein Albumin Globulin Albumin/Globulin Ratio Triglycerides Procalcitonin 0.18 Mycoplasma pneumon IgG Mycoplasma pneumon IgM Ur Strep pneumoniae Ag 03/12/19 03/12/19 16:40 16:39 WBC 24.8 H RBC 4.60 Hgb 13.4 Hct 40.6 POC Hct 39.0 MCV 88.1 MCH 29.1 MCHC 33.0 RDW 17.4 H Plt Count 314 MPV 7.5 Gran % 96.7 H Lymph % (Auto) 2.0 L [place] % (Auto) 1.3 Eos % (Auto) 0 Baso % (Auto) 0 Gran # 23.9 H Lymph # (Auto) 0.5 L [place] # (Auto) 0.3 Eos # (Auto) 0 Baso # (Auto) 0 Total Counted Seg Neutrophils % Band Neutrophils % Lymphocytes % Monocytes % (Manual) Platelet Estimate RBC Morphology Anisocytosis VBG Lactic Acid POC Sodium 136 Sodium 137 POC Potassium 4.2 Potassium 4.5 POC Chloride 94 L Chloride 91 L Carbon Dioxide 32 H POC Total CO2 31 H Anion Gap 14.0 POC BUN 18 BUN 18 Creatinine 0.8 POC Creatinine 0.8 GFR Calculation 74 Glucose 98 POC Glucose 117 H Uric Acid Calcium 9.3 POC WB Ioniz Calcium 1.13 L Phosphorus Magnesium 1.9 Total Bilirubin 0.6 Direct Bilirubin GGT AST 27 ALT 17 Alkaline Phosphatase 65 Lactate Dehydrogenase Troponin T C-Reactive Protein Total Protein 8.6 H Albumin 4.0 Globulin 4.6 H Albumin/Globulin Ratio 0.9 L Triglycerides Procalcitonin Mycoplasma pneumon IgG Mycoplasma pneumon IgM Ur Strep pneumoniae Ag Medical - DS: A/P - Patient/Caregiver Discharge Instructions Activity: increase activity as tolerated Diet: Regular Diet Prescriptions: Levofloxacin [Levaquin] 750 mg PO DAILY #4 tab - Follow up Plan Follow up with: Josseline Kyle ARNP [Primary Care Provider] - Disposition: Home, Self-Care Prognosis: Fair Rehab Potential: Fair Overall status at discharge: patient is back to baseline Medical - DS: Qual - VTE Deep Vein Thrombosis/Pulmonary Embolism Present on Admission: No
[2019-03-13] MEDS: TRELEGY ELLIPTA INH SCH (09:34)
[2019-03-13] MEDS ORDERED: PNEUMOCOCCAL 23-VAL P-SAC VAC 0.5 ML SYRINGE IM ONE (10:00)
[2019-03-13] MEDS: cefTRIAXone 2 GM in DEXTROSE 5% IN WATER 50 ML IV SCH (14:26)
[2019-03-13] MEDS: NICOTINE 21 MG PATCH TOPICAL SCH (21:18)
[2019-03-14] MEDS: HYDROcodone/APAP 10/325MG TABLET PO SCH (05:36)
[2019-03-14] MEDS: IPRATROPIUM/ALBUTEROL 3 ML AMPUL.NEB NEB SCH (05:37)
[2019-03-14] MEDS: 0.9 % SODIUM CHLORIDE 10 ML SYRINGE IV SCH (05:41)
[2019-03-14] MEDS: guaiFENesin 600 MG TAB.SR.12H PO SCH (07:11)
[2019-03-14] MEDS: predniSONE 20 MG TABLET PO SCH (07:12)
[2019-03-14] MEDS: LEVOTHYROXINE 25 MCG TABLET PO SCH (07:12)
[2019-03-14] MEDS: ENOXAPARIN 40 MG/0.4 ML SYRINGE SQ SCH (07:12)
[2019-03-14] MEDS: ATORVASTATIN 20 MG TABLET PO SCH (07:12)
[2019-03-14] MEDS: GABAPENTIN 300 MG CAPSULE PO SCH (07:12)
[2019-03-14] MEDS: TRELEGY ELLIPTA INH SCH (07:32)
[2019-03-14 07:37] LABS: C-Reactive Protein 5.1 mg/dl (0.0-0.8)
[2019-03-14] MEDS: NICOTINE 21 MG PATCH TOPICAL SCH (08:46)
[2019-03-14] MEDS: cefTRIAXone 2 GM in DEXTROSE 5% IN WATER 50 ML IV SCH (09:08)
[2019-03-14] MEDS ORDERED: NICOTINE 21 MG PATCH TOPICAL SCH (10:00)
[2019-03-17 16:54] LABS: M. Pneumoniae IGG 1.35 ISR
== END 2019-03-14 10:40 | disposition home or self-care (01) | DRG 194 ==
LOC: ED 15:18 → MEDSUR 20:44
PROVIDERS: ADMIT Internal Medicine; ATTEND Internal Medicine

== ENCOUNTER 2019-04-22 18:51 | Observation (INO) ==
[2019-04-22] MEDS ORDERED: IOPAMIDOL 100 ML BOTTLE IV ONE (18:52)
[2019-04-22] MEDS ORDERED: IPRATROPIUM/ALBUTEROL 3 ML AMPUL.NEB NEB ONE (19:18)
[2019-04-22] MEDS ORDERED: methylPREDNISolone SOD SUCC 125 MG/2 ML VIAL IV ONE (19:25)
[2019-04-22] MEDS ORDERED: LEVOFLOXACIN 500 MG/100 ML BAG IV ONE (19:25)
--- NOTE | 2019-04-22 19:28 | Emergency Department Note ---
SOB HPI - General Mode of arrival: wheelchair <Sintia Valerio - Last Filed: 04/22/19 20:51> - General Source: patient Limitations: no limitations <Westley Brar - Last Filed: 04/22/19 23:15> - General Chief Complaint: Shortness of Breath/Dyspnea Stated Complaint: shortness of breathe Time Seen by Provider: 04/22/19 19:07 - History of Present Illness 73-year-old female presents complaining of shortness of breath that is worsening. States she is had pneumonia for 2-1/2 weeks. Finished azithromycin but is getting worse instead of better. She was admitted here for pneumonia and discharged a little over week ago. States the last 3 days she has become even more short of breath. Feels like she has a tiny mucus that she cannot get up and like she cannot breathe. Also has positive fever and chills although she has not taken her temperature. States she feels very hot and gets diaphoretic. She also has other times where she is shaking uncontrollably with chills. Posit diego nausea but no vomiting or diarrhea. She has been on prednisone in the azithromycin with no relief. Denies sore throat or ear pain. She does have intermittent headache. No dysuria or frequency. No abdominal pain. Oxygen saturations are 82% on arrival on room air. She does live at home with her significant other. Caregiver with her lives next door. (Sintia Valerio) I assumed care of this patient at shift change. Prior to that I have discussed this case with Sintia Valerio [facility]-talked about her work-up and status (Westley Brar) - Related Data Home Medications Medication Instructions Recorded Confirmed atorvastatin 20 mg tablet 20 mg PO DAILY 12/16/16 04/22/19 gabapentin 300 mg capsule 300 mg PO QID cap 12/16/16 04/22/19 levothyroxine 25 mcg tablet 25 mcg PO QDAY 12/16/16 04/22/19 nystatin 100,000 unit/gram topical 1 applic TOPICAL BID PRN 12/16/16 04/22/19 cream nystatin 100,000 unit/mL oral 100,000 unit BUCCAL QID PRN 12/16/16 04/22/19 suspension ondansetron 8 mg disintegrating 8 mg PO TID tab 12/16/16 04/22/19 tablet oxygen 4 inh INH CONT 12/16/16 04/22/19 hydrocodone 10 mg-acetaminophen 2 tab PO Q6H 01/12/17 04/22/19 325 mg tablet omeprazole 20 mg tablet,delayed 20 mg PO QDAY tab 03/05/19 04/22/19 release guaiFENesin [Guaifenesin ER] 1,200 mg PO BID 03/12/19 04/22/19 nicotine 21 mg/24 hr daily 1 patch TRANSDERMA Q24H 03/21/19 04/22/19 transdermal patch Previous Rx's Medication Instructions Recorded albuterol sulfate 2.5 mg/0.5 mL 2.5 mg INHALATION QHS PRN #60 each 10/11/18 solution for nebulization chlorhexidine gluconate 0.12 % 15 ml MUCOUS MEM BID #900 ml 12/19/18 mouthwash fluticasone fur. 100 mcg-umeclid 1 inh INHALATION QDAY #180 each 12/19/18 62.5 mcg-vilant 25 mcg inhalat.powder albuterol sulfate 90 mcg/actuation 2 inh INHALATION Q4H PRN #1 each 02/15/19 breath activated powder inhaler Azithromycin [Zithromax] 200 mg PO QAMAC #30 ml 04/15/19 prednisoLONE [Prednisolone] 30 mg G-TUBE DAILY #50 ml 04/15/19 Allergies Allergy/AdvReac Type Severity Reaction Status Date / Time ioversol [From OPTIRAY 320] Allergy Intermediate Hives Verified 04/04/19 13:32 carbamazepine [From TEGRETOL] AdvReac Intermediate LOSS OF Verified 04/04/19 13:32 SELF-AWARENESS Milk Containing Products AdvReac Mild Other Verified 04/04/19 13:32 Penicillins AdvReac Mild SEVERE Verified 04/04/19 13:32 ITCHING Tetanus Vaccines and Toxoid AdvReac Mild INJ SITE Verified 04/04/19 13:32 SWELLING, AND JAW PAIN SILK TAPE AdvReac Mild BLISTERS, Uncoded 03/05/19 15:00 TEARS SKIN Review of Systems All systems ED: reviewed and negative except as stated. <Sintia Valerio - Last Filed: 04/22/19 20:51> Past Medical History - Past Medical History Medical history: Reports: COPD, hyperlipidemia, hypertension, hypothyroidism Surgical history ED: Reports: appendectomy, cholecystectomy, hysterectomy, orthopedic, other (Back surgery multiple), tonsillectomy, other (Thyroglossal duct cyst, She does have a feeding tube in place) - Social History smoking status: Current every day smoker Alcohol use: Reports: None Drug use: Reports: marijuana <Sintia Valerio - Last Filed: 04/22/19 20:51> - Past Medical History FOR[facility]LY [facility] Narrative: Medical History (Last Updated 04/16/19 @ 00:47 by Star Steward DO) Bowel obstruction (Resolved) History of pneumonia (Chronic) Dependence on supplemental oxygen (Chronic) COPD (chronic obstructive pulmonary disease) (Chronic) Emphysema, unspecified (Chronic) Pulmonary fibrosis (Chronic) Hypertension (Chronic) Bronchiectasis (Chronic) Personal history of malignant neoplasm of larynx (Chronic) Adjustment disorder with mixed anxiety and depressed mood (Chronic) Other organic insomnia (Chronic) Other osteoporosis (Chronic) GERD (gastroesophageal reflux disease) (Chronic) Unspecified vitamin D deficiency (Chronic) Other specified anemias (Chronic) Dysphagia, oral phase (Chronic) Lumbago (Chronic) Constipation due to pain medication (Chronic) Pulmonary nodule (Chronic) Peripheral neuropathy (Chronic) Hypothyroidism (Chronic) Scoliosis deformity of spine (Chronic) Acute exacerbation of chronic obstructive airways disease (Resolved) Atelectasis of right lung (Resolved) Cholecystectomy planned (Resolved) Chronic respiratory failure with hypoxia and hypercapnia (Resolved) Cough (Resolved) Cough with hemoptysis (Resolved) Decreased strength (Resolved) Epigastric pain (Resolved) Pain around PEG tube site (Resolved) Pneumonia (Resolved) Past Surgical History (Last Updated 04/16/19 @ 00:47 by Star Steward DO) Status post insertion of intrathecal pump (Acute) No pertinent past surgical history (Chronic) History of appendectomy (Resolved) Hx of tonsillectomy (Resolved) Previous back surgery (Resolved) (Sintia Valerio) Physical Exam General appearance: alert, anxious (mildly) Head: atraumatic, normocephalic, normal inspection Eye: Present: normal appearance. Absent: conjunctival injection ENT: Present: normal exam, normal oropharynx, mucous membranes moist, TM's normal bilaterally, normal external ear exam Neck: Present: normal inspection, trachea midline. Absent: tenderness, lymphadenopathy Chest: Present: symmetric chest wall rise Respiratory: Present: respiratory distress (Mild on arrival with labored breathing and oxygen saturations 82% on room air), wheezes (Inspiratory and expiratory wheezing throughout on arrival), accessory muscle use (Mild on arrival). Absent: stridor Cardiovascular: Present: regular rate, normal heart sounds Abdominal: Present: other (Feeding tube patent) Extremities: Present: normal inspection. Absent: pedal edema Neurological: Present: alert, oriented X3 Psychiatric: Present: normal affect, normal mood Skin: Present: warm, dry, intact, normal color. Absent: rash, hives, cyanosis, diaphoresis <Sintia Valerio - Last Filed: 04/22/19 20:51> Course Vital Signs Temperature 99.1 F H 04/22/19 18:52 Blood Pressure 133/72 04/22/19 18:52 Pulse Oximetry (%) 91 04/22/19 18:52 Temperature 99.1 F H 04/22/19 18:52 Pulse Rate 75 04/22/19 23:01 Respiratory Rate 13 04/22/19 23:01 Blood Pressure 127/68 04/22/19 23:01 Pulse Oximetry (%) 97 04/22/19 23:01 Shortness of Breath/Dyspnea - Lab Data Result diagrams: 04/22/19 19:14 04/22/19 19:14 <Sintia Valerio - Last Filed: 04/22/19 20:51> - Lab Data Lab results reviewed: Yes I reviewed the patient's lab results. Result diagrams: 04/22/19 19:14 04/22/19 19:14 - Radiology Data Radiology results reviewed: Yes I reviewed the patient's radiology results. - EKG Data EKG attestation: Yes I reviewed and interpreted this EKG., Yes There are no EKG findings of acute coronary syndrome, Yes This EKG will be read by biotech production specialist <Westley Brar - Last Filed: 04/22/19 23:15> - Lab Data Lab Results 04/22/19 04/22/19 04/22/19 Range/Units 19:14 19:14 19:14 WBC 14.0 H (4.5-11.0) K/mcL RBC 4.12 (4.00-5.20) M/mcL Hgb 12.1 (12.0-15.0) g/dL Hct 36.8 (36.0-48.0) % MCV 89.4 (80.0-100.0) fL MCH 29.4 (26.0-34.0) pg MCHC 32.9 (31.0-36.0) g/dL RDW 16.5 H (11.5-14.5) % Plt Count 347 (140-440) K/mcL MPV 7.2 L (7.4-10.4) fL Gran % 93.7 H (38.0-78.0) % Lymph % (Auto) 4.7 L (15.5-49.0) % [place] % (Auto) 1.6 (1.0-12.0) % Eos % (Auto) 0 (0.0-7.0) % Baso % (Auto) 0 (0.0-2.0) % Gran # 13.1 H (1.8-8.0) K/mcL Lymph # (Auto) 0.7 L (1.5-4.8) K/mcL [place] # (Auto) 0.2 (0.1-0.9) K/mcL Eos # (Auto) 0 (0.0-0.7) K/mcL Baso # (Auto) 0 (0.0-0.3) K/mcL VBG Lactic Acid (0.5-2.0) mmol/L Sodium 135 (133-145) mmol/L Potassium 4.1 (3.3-5.1) mmol/L Chloride 93 L (96-108) mmol/L Carbon Dioxide 30 (22-30) mmol/L Anion Gap 12.0 (8-16) BUN 16 (8-23) mg/dl Creatinine 0.8 (0.6-1.1) mg/dl GFR Calculation 74 Glucose 154 H (70-105) mg/dL Calcium 9.0 (8.6-10.4) mg/dl Total Bilirubin 0.2 (0.0-1.0) mg/dL AST 15 (0-37) U/l ALT 14 (0-40) U/l Alkaline Phosphatase 69 (39-117) U/L Troponin T < 0.01 (0-0.03) ng/ml NT-Pro-B Natriuret Pep 242.3 H (0-125) pg/ml Total Protein 8.4 (5.9-8.4) gm/dL Albumin 3.9 (3.2-5.2) gm/dL Globulin 4.5 H (2.2-3.7) gm/dL Albumin/Globulin Ratio 0.9 L (1.0-2.3) Procalcitonin (<0.10) ng/mL Urine Color Urine Appearance Urine pH (5.0-9.0) Ur Specific [place] (1.000-1.035) Urine Protein (NEG) mg/dL Urine Glucose (UA) (NEG) mg/dL Urine Ketones (NEG) mg/dL Urine Occult Blood (<0.03) mg/dL Urine Nitrate (NEG) Urine Bilirubin (NEG) mg/dL Urine Urobilinogen (NEG) mg/dL Ur Leukocyte Esterase (NEG) /uL Urine RBC (0-1) /hpf Urine WBC (0-4) /hpf Ur Squamous Epith Cells (0-4) /hpf Urine Bacteria (0) /hpf Urine Mucus (0) /hpf Ur Culture Indicated? 04/22/19 04/22/19 04/22/19 Range/Units 19:15 19:26 21:20 WBC (4.5-11.0) K/mcL RBC (4.00-5.20) M/mcL Hgb (12.0-15.0) g/dL Hct (36.0-48.0) % MCV (80.0-100.0) fL MCH (26.0-34.0) pg MCHC (31.0-36.0) g/dL RDW (11.5-14.5) % Plt Count (140-440) K/mcL MPV (7.4-10.4) fL Gran % (38.0-78.0) % Lymph % (Auto) (15.5-49.0) % [place] % (Auto) (1.0-12.0) % Eos % (Auto) (0.0-7.0) % Baso % (Auto) (0.0-2.0) % Gran # (1.8-8.0) K/mcL Lymph # (Auto) (1.5-4.8) K/mcL [place] # (Auto) (0.1-0.9) K/mcL Eos # (Auto) (0.0-0.7) K/mcL Baso # (Auto) (0.0-0.3) K/mcL VBG Lactic Acid 1.6 (0.5-2.0) mmol/L Sodium (133-145) mmol/L Potassium (3.3-5.1) mmol/L Chloride (96-108) mmol/L Carbon Dioxide (22-30) mmol/L Anion Gap (8-16) BUN (8-23) mg/dl Creatinine (0.6-1.1) mg/dl GFR Calculation Glucose (70-105) mg/dL Calcium (8.6-10.4) mg/dl Total Bilirubin (0.0-1.0) mg/dL AST (0-37) U/l ALT (0-40) U/l Alkaline Phosphatase (39-117) U/L Troponin T (0-0.03) ng/ml NT-Pro-B Natriuret Pep (0-125) pg/ml Total Protein (5.9-8.4) gm/dL Albumin (3.2-5.2) gm/dL Globulin (2.2-3.7) gm/dL Albumin/Globulin Ratio (1.0-2.3) Procalcitonin < 0.10 (<0.10) ng/mL Urine Color Yellow Urine Appearance Clear Urine pH 7.0 (5.0-9.0) Ur Specific [place] 1.015 (1.000-1.035) Urine Protein Neg (NEG) mg/dL Urine Glucose (UA) Negative (NEG) mg/dL Urine Ketones Neg (NEG) mg/dL Urine Occult Blood Neg (<0.03) mg/dL Urine Nitrate Neg (NEG) Urine Bilirubin Neg (NEG) mg/dL Urine Urobilinogen Neg (NEG) mg/dL Ur Leukocyte Esterase Neg (NEG) /uL Urine RBC 0 (0-1) /hpf Urine WBC 0 (0-4) /hpf Ur Squamous Epith Cells 4 (0-4) /hpf Urine Bacteria Few A (0) /hpf Urine Mucus Few (0) /hpf Ur Culture Indicated? Yes ABG shows pH 7.53 PCO2 41 PO2 of 87 (Westley Brar) - Radiology Data CT scan of the lungs show mild patchy bilateral pulmonary opacities more prominent lung base. Also bronchial wall thickening. Partial collapse of the right lung is seen versus consolidation (Westley Brar) Disposition Pt seen by LABOR RELATIONS ANALYST/PA only: Yes <Sintia Valerio - Last Filed: 04/22/19 20:51> Pt seen by LABOR RELATIONS ANALYST/PA only: No <Westley Brar - Last Filed: 04/22/19 23:15> Clinical Impression: COPD exacerbation, Hypoxia Dyspnea Qualifiers: Dyspnea type: unspecified Qualified Code(s): R06.00 - Dyspnea, unspecified Pneumonia Qualifiers: Pneumonia type: due to unspecified organism Laterality: left Lung location: lower lobe of lung Qualified Code(s): J18.1 - Lobar pneumonia, unspecified organism Summary: Assumed full care of patient after shift change. Reviewed her medical record. CT scan of the chest showed pneumonia and bronchitis. She is already received Levaquin. Blood cultures were done first. I discussed the case with Dr. Shirley, hospitalist who agreed to accept the patient for further care and evaluation. I will write some brief holding orders (Westley Brar) Disposition: Xfer As Outpt/Obs ([facility]) Condition: Fair Referrals: Josseline Kyle ARNP [Primary Care Provider] -
--- NOTE | 2019-04-22 19:56 | XRay Report ---
INDICATION: Dyspnea TECHNIQUE: AP chest x-ray,portable semiupright COMPARISON: Previous chest x-rays dated 04/15/2019 and 03/05/2019 FINDINGS:No focal pulmonary parenchymal infiltrate. No evidence for pneumonia. Heart size and vascularity are normal. Addie and mediastinum are negative. There is hyperexpansion and findings consistent with COPD. There is a gastrostomy catheter in the upper abdomen. IMPRESSION: 1. Changes consistent with COPD 2. No acute or focal abnormality Interpreted and Authenticated by: Jin Carrasquillo 04/22/19
[2019-04-22 20:16] LABS: Basophils # (Auto) 0 K/mcL (0.0-0.3); Basophils % (Auto) 0 % (0.0-2.0); Eosinophils # (Auto) 0 K/mcL (0.0-0.7); Eosinophils % (Auto) 0 % (0.0-7.0); Granulocytes % (Auto) 93.7 % (38.0-78.0); Hematocrit 36.8 % (36.0-48.0); Hemoglobin 12.1 g/dL (12.0-15.0); Lymphocytes # (Auto) 0.7 K/mcL (1.5-4.8); Lymphocytes % (Auto) 4.7 % (15.5-49.0); Mean Cell Volume 89.4 fL (80.0-100.0); Mean Corpuscular HGB Conc 32.9 g/dL (31.0-36.0); Mean Platelet Volume 7.2 fL (7.4-10.4); Monocytes # (Auto) 0.2 K/mcL (0.1-0.9); Monocytes % (Auto) 1.6 % (1.0-12.0); Platelet Count 347 K/mcL (140-440); RBC 4.12 M/mcL (4.00-5.20); Red Cell Distribution Width 16.5 % (11.5-14.5)
[2019-04-22 20:41] LABS: proBNP 242.3 pg/ml (0-125)
[2019-04-22 20:48] LABS: ALT/SGPT 14 U/l (0-40); AST/SGOT 15 U/l (0-37); Albumin 3.9 gm/dL (3.2-5.2); Albumin/Globulin Ratio 0.9 (1.0-2.3); Alkaline Phosphatase 69 U/L (39-117); Bilirubin,Total 0.2 mg/dL (0.0-1.0); Blood Urea Nitrogen 16 mg/dl (8-23); Carbon Dioxide 30 mmol/L (22-30); Chloride 93 mmol/L (96-108); Globulin 4.5 gm/dL (2.2-3.7); Glomerular Filtration Rate 74; Glucose 154 mg/dL (70-105)
[2019-04-22] MEDS ORDERED: HYDROcodone/APAP 10/325MG TABLET PO ONE (21:22)
[2019-04-22] MEDS ORDERED: HYDROcodone/APAP 5/325MG TABLET PO ONE (21:25)
[2019-04-22 22:48] LABS: Appearance,Urine CLEAR; Bacteria,Urine FEW /hpf (0); Bilirubin,Urine NEG (NEG); Color,Urine YELLOW; Culture Indicated,Urine YES; Glucose,Urine (UA) NEGATIVE (NEG); Ketones,Urine NEG (NEG); Leukocyte Esterase,Urine NEG /uL (NEG); Mucus,Urine FEW /hpf (0); Nitrate,Urine NEG (NEG); Protein,Urine NEG (NEG); Specific Gravity,Urine 1.015 (1.000-1.035); Urine Blood NEG mg/dL (<0.03); Urine RBC 0 /hpf (0-1); Urine Squamous Epithelial Cell 4 /hpf (0-4); Urine WBC 0 /hpf (0-4); Urobilinogen,Urine NEG (NEG)
--- NOTE | 2019-04-22 23:24 | Internal Med History&Physical ---
Medical - H&P: [facility] Patient information: Note initiated : 04/22/19 at 11:22 pm Service Date, if different from initiated Date: [] Patient: Kassidy Dawson a 73 y/o F admitted on for shortness of breathe. Chief Complaint: [] Chief complaint: SOB History of present illness: Ms. Dawson is a 73 year old F with a known history of O2 dependent COPD who was recently hospitalized mid-March and was discharged after treatment for pneumonia and COPD exacerbation. Patient has been on antibiotics including azithromycin and subsequently another round of Levaquin. Despite treatment patient has not seen any significant improvement and has gotten progressively short of breath, orthopneic and inability to function. Symptoms associated with increasing yellow productive sputum increasing cough. She normally uses 4 L oxygen but has failed to get any benefit despite increasing flow. she denies associated pleurisy/chest pain/fever or chills. She further denies weight gain. She appears remarkably anxious. Patient follows up with pulmonary clinic with Dr. Jones as outpatient. Initial work-up in the ER was consistent with acute COPD exacerbation. EKG reveals sinus rhythm. Chest CT shows centrilobular emphysema along with bronchiectasis right middle lobe consistent with chronic findings. Patient was continued on antibiotic coverage. Blood gas shows pH 7.53/40 on 4 L oxygen. Subsequently hospitalist service was consulted in light of increased work of breathing/COPD flare. At the time of evaluation patient is alert and oriented. She feels slightly better. She denies Recent diarrhea, dysuria, headache, photophobia. She endorses to history as above. Continues to smoke. Review of systems A 10 point review system was performed and is negative except for one discussed above Medical - H&P: PMH Medical history: Bronchiectasis (Chronic) Cough (Chronic) Cough with hemoptysis (Chronic) Epigastric pain (Chronic) Pneumonia (Chronic) Personal history of malignant neoplasm of larynx (Chronic) Adjustment disorder with mixed anxiety and depressed mood (Chronic) COPD (chronic obstructive pulmonary disease) (Chronic) Other organic insomnia (Chronic) Other osteoporosis (Chronic) GERD (gastroesophageal reflux disease) (Chronic) Unspecified vitamin D deficiency (Chronic) Other specified anemias (Chronic) Dysphagia, oral phase (Chronic) Lumbago (Chronic) Decreased strength (Chronic) Constipation due to pain medication (Chronic) Pulmonary nodule (Chronic) Peripheral neuropathy (Chronic) Hypothyroidism (Chronic) Hypertension (Chronic) Pulmonary fibrosis (Chronic) Emphysema, unspecified (Chronic) Acute bronchitis (Chronic) Scoliosis deformity of spine (Chronic) Bowel obstruction (Resolved) Cholecystectomy planned (Resolved) Past Surgical History No pertinent past surgical history (Chronic) History of appendectomy (Resolved) Hx of tonsillectomy (Resolved) Previous back surgery (Resolved) Family History Mother Brain cancer Breast cancer Cervical cancer Father Alcoholism Son Multiple sclerosis Social History Smokes half pack cigarettes per day Denies alcohol use Ambulates with a walker and is quite sedentary Lives with family Medical - H&P: Meds Home Medications Medication Instructions Recorded Confirmed Type atorvastatin 20 mg tablet 20 mg PO DAILY 12/16/16 04/23/19 History gabapentin 300 mg capsule 300 mg PO QID cap 12/16/16 04/23/19 History levothyroxine 25 mcg tablet 25 mcg PO QDAY 12/16/16 04/23/19 History nystatin 100,000 unit/gram topical 1 applic TOPICAL BID PRN 12/16/16 04/23/19 History cream nystatin 100,000 unit/mL oral 100,000 unit BUCCAL QID PRN 12/16/16 04/23/19 History suspension ondansetron 8 mg disintegrating 8 mg PO TID tab 12/16/16 04/23/19 History tablet oxygen 4 inh INH CONT 12/16/16 04/23/19 History hydrocodone 10 mg-acetaminophen 2 tab PO Q6H 01/12/17 04/23/19 History 325 mg tablet albuterol sulfate 2.5 mg/0.5 mL 2.5 mg INHALATION QHS PRN #60 each 10/11/18 04/23/19 Rx solution for nebulization chlorhexidine gluconate 0.12 % 15 ml MUCOUS MEM BID #900 ml 12/19/18 04/23/19 Rx mouthwash fluticasone fur. 100 mcg-umeclid 1 inh INHALATION QDAY #180 each 12/19/18 04/23/19 Rx 62.5 mcg-vilant 25 mcg inhalat.powder albuterol sulfate 90 mcg/actuation 2 inh INHALATION Q4H PRN #1 each 02/15/19 04/23/19 Rx breath activated powder inhaler omeprazole 20 mg tablet,delayed 20 mg PO QDAY tab 03/05/19 04/23/19 History release guaiFENesin [Guaifenesin ER] 1,200 mg PO BID 03/12/19 04/23/19 History nicotine 21 mg/24 hr daily 1 patch TRANSDERMA Q24H 03/21/19 04/23/19 History transdermal patch Azithromycin [Zithromax] 200 mg PO QAMAC #30 ml 04/15/19 04/23/19 Rx prednisoLONE [Prednisolone] 30 mg G-TUBE DAILY #50 ml 04/15/19 04/23/19 Rx Tamsulosin [Flomax] 0.4 mg PO DAILY 04/23/19 04/23/19 History Allergies Allergy/AdvReac Type Severity Reaction Status Date / Time ioversol [From OPTIRAY 320] Allergy Intermediate Hives Verified 04/04/19 13:32 carbamazepine [From TEGRETOL] AdvReac Intermediate LOSS OF Verified 04/04/19 13:32 SELF-AWARENESS Milk Containing Products AdvReac Mild Other Verified 04/04/19 13:32 Penicillins AdvReac Mild SEVERE Verified 04/04/19 13:32 ITCHING Tetanus Vaccines and Toxoid AdvReac Mild INJ SITE Verified 04/04/19 13:32 SWELLING, AND JAW PAIN SILK TAPE AdvReac Mild BLISTERS, Uncoded 03/05/19 15:00 TEARS SKIN Medical - H&P: Exam - Constitutional Vitals: Temp Pulse Resp BP Pulse Ox 99.1 F H 75 12 137/63 98 04/22/19 18:52 04/22/19 23:21 04/22/19 23:21 04/22/19 23:21 04/22/19 23:21 General appearance: moderate distress (Short of breath) Exam: Alert oriented thin individual Barrel chest Head normocephalic Oral cavity dry no ear nose discharge Neck no lymphadenopathy or JVD Eye movement symmetrical S1-S2 tachycardia mid 90s, ESM grade 1 Prolonged expiratory rhonchi with basilar crackles Skin no suspicious lesion Abdomen soft nontender Lower extremity no cyanosis clubbing no joint swelling Psych anxious but alert and cooperative Neuro nonfocal Medical - H&P: Reslt - Labs CBC & Chem 7: 04/23/19 04:25 04/23/19 04:25 Labs: Short CBC 04/22/19 Range/Units 19:14 WBC 14.0 H (4.5-11.0) K/mcL Hgb 12.1 (12.0-15.0) g/dL Hct 36.8 (36.0-48.0) % Plt Count 347 (140-440) K/mcL BMP 04/22/19 19:14 Sodium 135 Potassium 4.1 Chloride 93 L Carbon Dioxide 30 BUN 16 Creatinine 0.8 Glucose 154 H Calcium 9.0 Cardiac Enzymes 04/22/19 Range/Units 19:14 Troponin T < 0.01 (0-0.03) ng/ml Liver Function 04/22/19 Range/Units 19:14 Total Bilirubin 0.2 (0.0-1.0) mg/dL AST 15 (0-37) U/l ALT 14 (0-40) U/l Alkaline Phosphatase 69 (39-117) U/L Albumin 3.9 (3.2-5.2) gm/dL Urine 04/22/19 Range/Units 21:20 Urine Color Yellow Urine Appearance Clear Urine pH 7.0 (5.0-9.0) Ur Specific [place] 1.015 (1.000-1.035) Urine Protein Neg (NEG) mg/dL Urine Glucose (UA) Negative (NEG) mg/dL Medical - H&P: A/P (1) COPD exacerbation Current visit: Yes Status: Acute * Acute exacerbation of COPD-with triad of dyspnea/increased purulence and increased sputum production. Increased work of breathing suggestive from hyperventilation/respiratory alkalosis. Continue bronchodilators/steroids/antibiotics for atypical coverage. Continue pulmo nary toilet * Bronchiectasis with concerns of LESIA-ID consult. Continue pulmonary toilet/bronchodilators. * History of pulmonary fibrosis patient follows outpatient with Dr. Jones pulmonology. * Respiratory alkalosis due to increase work of breathing and hyperventilation. Patient is a CO2 retainer. [place] corrected CO2 * History of hypothyroidism continue thyroxine * Neuropathy continue gabapentin * Hyperlipidemia continue statin * Degenerative joint disease continue hydrocodone at home dose * GERD continue PPI * Tobacco dependence continue current patch * Full code * Prophylaxis heparin Plan * Obs admit * ID consult * Bronchodilators/steroids * Pre-existing medical condition management on home meds * PT OT/RT treatments * Discharge planning
[2019-04-23] MEDS ORDERED: MAGNESIUM SULFATE 2 GM/50 ML BAG IV PRN (00:10)
[2019-04-23] MEDS ORDERED: DEXTROSE 50% 50 ML VIAL IV PRN (00:10)
[2019-04-23] MEDS ORDERED: ONDANSETRON 4 MG/2 ML VIAL IV PRN (00:10)
[2019-04-23] MEDS ORDERED: ACETAMINOPHEN 650 MG/65 ML BOTTLE IV PRN (00:10)
[2019-04-23] MEDS ORDERED: POTASSIUM CHLORIDE 20 MEQ PACKET PO PRN (00:10)
[2019-04-23] MEDS ORDERED: ACETAMINOPHEN 325 MG TABLET PO PRN (00:10)
[2019-04-23] MEDS ORDERED: DEXTROSE 31 GM ORAL.SUSP PO PRN (00:10)
[2019-04-23] MEDS ORDERED: MELATONIN 3 MG TABLET PO PRN (00:10)
[2019-04-23] MEDS: LEVOFLOXACIN 750 MG/150 ML BAG IV SCH ×2 (01:17→14:46)
[2019-04-23] MEDS: HYDROcodone/APAP 10/325MG TABLET PO SCH ×4 (01:18→14:23)
[2019-04-23] MEDS ORDERED: cefTRIAXone 1 GM VIAL ONE (01:32)
[2019-04-23] MEDS: 0.9 % SODIUM CHLORIDE 10 ML SYRINGE IV SCH ×4 (01:38→21:32)
[2019-04-23] MEDS: cefTRIAXone 2 GM in DEXTROSE 5% IN WATER 50 ML IV SCH ×2 (01:45→16:22)
[2019-04-23] MEDS ORDERED: IPRATROPIUM/ALBUTEROL 3 ML AMPUL.NEB NEB ONE (02:54)
[2019-04-23] MEDS: IPRATROPIUM/ALBUTEROL 3 ML AMPUL.NEB NEB SCH ×6 (03:02→22:51)
[2019-04-23 05:52] LABS: Hemoglobin 11.6 g/dL (12.0-15.0); Mean Cell Volume 89.5 fL (80.0-100.0); Mean Corpuscular HGB Conc 32.4 g/dL (31.0-36.0); Platelet Count 307 K/mcL (140-440); RBC 4.02 M/mcL (4.00-5.20); Red Cell Distribution Width 16.6 % (11.5-14.5); WBC 7.1 K/mcL (4.5-11.0)
[2019-04-23 06:15] LABS: ALT/SGPT 12 U/l (0-40); AST/SGOT 12 U/l (0-37); Albumin 3.5 gm/dL (3.2-5.2); Albumin/Globulin Ratio 0.9 (1.0-2.3); Alkaline Phosphatase 62 U/L (39-117); Bilirubin,Direct < 0.2 mg/dL (0.0-0.3); Bilirubin,Total 0.2 mg/dL (0.0-1.0); Blood Urea Nitrogen 15 mg/dl (8-23); Calcium 8.9 mg/dl (8.6-10.4); Carbon Dioxide 32 mmol/L (22-30); Chloride 95 mmol/L (96-108); Globulin 4.1 gm/dL (2.2-3.7); Glomerular Filtration Rate 87; Glucose 147 mg/dL (70-105); Lactate Dehydrogenase 142 U/L (94-250); Phosphorous 3.1 mg/dL (2.7-4.5); Triglycerides 50 mg/dl (<150)
--- NOTE | 2019-04-23 06:37 | Cat Scan Report ---
CLINICAL INFORMATION: Cough, dyspnea, fever TECHNIQUE: Axial postcontrast enhanced images through the chest. Sagittal and coronal reformatted images COMPARISON: Previous chest CT scans dated 03/12/2019, 06/05/2017, 03/17/2017, 06/30/2016, 02/16/2011 FINDINGS: Severe centrilobular and paraseptal emphysema. This patient has a smoking history. There is right middle lobe consolidation and bronchiectasis. This is a chronic finding. This is nonspecific but may be seen with Mycobacterium avium infection. There is mild bilateral lower lobe bronchiectasis. There is no honeycombing. No acute articular abnormality. No other pulmonary parenchymal consolidation or acute infiltrate. No evidence for acute pneumonia. No dominant parenchymal mass. No evidence for malignancy. Addie and mediastinum are negative. No pathologic adenopathy. No axillary adenopathy. Thoracic aorta is negative. No dissection. No aneurysmal dilatation. There is no pleural fluid. No pericardial fluid. There is a T6 compression deformity. This was present previously and is not acute. No rib fractures. No sternal fracture. Examination was initially interpreted by [facility] IMPRESSION: 1. Severe centrilobular and paraseptal emphysema 2. Right middle lobe volume loss and bronchiectasis. This is chronic. This can be seen with Mycobacterium avium infection 3. No acute parenchymal infiltrate. No kemi abnormal mass Interpreted and Authenticated by: Jin Carrasquillo 04/23/19
[2019-04-23] MEDS: OMEPRAZOLE 20 MG CAPSULE PO SCH (07:21)
[2019-04-23] MEDS: LEVOTHYROXINE 25 MCG TABLET PO SCH (07:22)
[2019-04-23] MEDS: NICOTINE 21 MG PATCH TD SCH ×2 (07:34→10:52)
[2019-04-23] MEDS: BUDESONIDE 0.5 MG/2 ML AMPUL.NEB NEB SCH ×2 (07:37→19:14)
[2019-04-23] MEDS: INSULIN LISPRO 1 UNIT/0.01 ML UNIT SQ SCH ×4 (08:24→21:30)
[2019-04-23 08:34] LABS: Anisocytosis 1+ (NONE SEEN); Lymphocytes % 4 % (15-49); Platelet Estimate NORMAL (NORMAL); RBC Morphology AN (NORMAL); Reactive Lymphocytes 3 % (0-2); Segmented Neutrophils % 93 % (38-78)
[2019-04-23] MEDS ORDERED: ALBUTEROL SULFATE 1 PUFF INHALER INH PRN (09:51)
[2019-04-23] MEDS: MULTIVIT,THER IRON,CA,FA & MIN 1 TABLET PO SCH (10:25)
[2019-04-23] MEDS: DOCUSATE SODIUM 100 MG CAPSULE PO SCH ×2 (10:26→21:16)
[2019-04-23] MEDS: GABAPENTIN 300 MG CAPSULE PO SCH ×3 (10:26→21:19)
[2019-04-23] MEDS: ATORVASTATIN 20 MG TABLET PO SCH (10:26)
[2019-04-23] MEDS: HEPARIN 5,000 UNIT/ML VIAL SQ SCH ×2 (10:27→21:18)
[2019-04-23] MEDS: FLUTICASONE INH SCH (10:28)
[2019-04-23] MEDS: VILANTEROL INH SCH (10:28)
[2019-04-23] MEDS: UMECLIDINIUM INH SCH (10:28)
[2019-04-23] MEDS: methylPREDNISolone SOD SUCC 125 MG/2 ML VIAL IV SCH ×2 (10:31→21:17)
[2019-04-23] MEDS: ONDANSETRON 4 MG ODT TABLET SL SCH ×2 (10:52→15:26)
--- NOTE | 2019-04-23 11:22 | Internal Med Progress Note ---
Medical - PN: Subj Patient information: Note initiated : 04/23/19 at 11:19 am Service Date, if different from initiated Date: [] Patient: Kassidy Dawson a 73 y/o F admitted on 04/22/19 for shortness of breathe. Chief Complaint: [] Interval history: Ms. Dawson is a 73 year old F with a known history of O2 dependent COPD who was recently hospitalized mid-March and was discharged after treatment for pneumonia and COPD exacerbation. Patient has been on antibiotics including azithromycin and subsequently another round of Levaquin. Despite treatment patient has not seen any significant improvement and has gotten progressively short of breath, orthopneic and inability to function. Symptoms associated with increasing yellow productive sputum increasing cough. She normally uses 4 L oxygen but has failed to get any benefit despite increasing flow. she denies associated pleurisy/chest pain/fever or chills. She further denies weight gain. She appears remarkably anxious. Patient follows up with pulmonary clinic with Dr. Jones as outpatient. Initial work-up in the ER was consistent with acute COPD exacerbation. EKG reveals sinus rhythm. Chest CT shows centrilobular emphysema along with b ronchiectasis right middle lobe consistent with chronic findings. Patient was continued on antibiotic coverage. Blood gas shows pH 7.53/40 on 4 L oxygen. Subsequently hospitalist service was consulted in light of increased work of breathing/COPD flare. At the time of evaluation patient is alert and oriented. She feels slightly better. She denies Recent diarrhea, dysuria, headache, photophobia. She endorses to history as above. Continues to smoke. 04/23-patient feeling a lot better. White count down to 7000 from 14. On bronchodilators and steroids. Much improved respiratory status. Improved anxiety. No overnight fever chills. Productive sputum. ID consulted in light of concerns of LESIA with underlying bronchiectasis. - Constitutional Vitals: Vital Signs Temp Pulse Resp BP Pulse Ox 97.4 F 66 12 96/53 91 04/23/19 08:00 04/23/19 08:00 04/23/19 08:00 04/23/19 08:00 04/23/19 08:00 Period Temp Pulse Resp BP Sys/Kelly Pulse Ox Last 24 Hr 97.3 F-99.1 F 66-96 04-27 96-150/46-107 91-98 Intake and Output 04/22/19 04/23/19 04/23/19 21:59 05:59 13:59 Intake Total 100 0 240 Balance 100 0 240 Weight 120 lb 126 lb 8 oz Intake & Output: Intake & Output 04/22/19 04/23/19 04/23/19 21:59 05:59 13:59 Intake Total 100 0 240 Balance 100 0 240 Weight 120 lb 126 lb 8 oz Intake: IV 100 Oral 0 240 Other: Meal Breakfast Feeding Ability Assist with Tray Set Up General appearance: no acute distress Exam: Nonlabored breathing Alert and oriented Expiratory rhonchi Nondistended abdomen Medical - PN: Obj Da - Labs CBC & Chem 7: 04/23/19 04:25 04/23/19 04:25 Labs: Abnormal Lab Results 04/23/19 04/23/19 04/22/19 04:25 04:25 21:20 WBC Hgb 11.6 L RDW 16.6 H MPV 7.0 L Gran % Lymph % (Auto) Gran # Lymph # (Auto) Seg Neutrophils % 93 H Lymphocytes % 4 L Reactive Lymphocytes 3 H Anisocytosis 1+ A Chloride 95 L Carbon Dioxide 32 H Glucose 147 H NT-Pro-B Natriuret Pep Globulin 4.1 H Albumin/Globulin Ratio 0.9 L Urine Bacteria Few A 04/22/19 04/22/19 19:14 19:14 WBC 14.0 H Hgb RDW 16.5 H MPV 7.2 L Gran % 93.7 H Lymph % (Auto) 4.7 L Gran # 13.1 H Lymph # (Auto) 0.7 L Seg Neutrophils % Lymphocytes % Reactive Lymphocytes Anisocytosis Chloride 93 L Carbon Dioxide Glucose 154 H NT-Pro-B Natriuret Pep 242.3 H Globulin 4.5 H Albumin/Globulin Ratio 0.9 L Urine Bacteria Meds: Medications Acetaminophen (Tylenol) 650 mg PO Q4-6HP PRN; Protocol PRN Reason: Per Pain Protocol/Fever > 101 Hydrocodone Bitart/Acetaminophen ([place] 10/325mg) 2 tab PO Q6H [facility]; Protocol Last Admin: 04/23/19 07:22 Dose: 2 tab Documented by: Albuterol/Ipratropium (Duoneb) 3 ml NEB Q4HRT [facility] Last Admin: 04/23/19 07:37 Dose: 3 ml Documented by: Atorvastatin Calcium (Lipitor) 20 mg PO DAILY [facility] Last Admin: 04/23/19 10:26 Dose: 20 mg Documented by: Budesonide (Pulmicort) 0.5 mg NEB Q12 [facility] Last Admin: 04/23/19 07:37 Dose: 0.5 mg Documented by: Dextrose (Dextrose 50%) 0 ml IV UD PRN PRN Reason: Hypoglycemia Diagnostic Test (Pha) (Accu-Chek) 1 each FS [facility] Last Admin: 04/23/19 07:30 Dose: 1 each Documented by: Docusate Sodium (Colace) 100 mg PO BID [facility] Last Admin: 04/23/19 10:26 Dose: 100 mg Documented by: Gabapentin (Neurontin) 300 mg PO QID [facility] Last Admin: 04/23/19 10:26 Dose: 300 mg Documented by: Glucose (Insta-Glucose) 15 gm PO PRN PRN PRN Reason: Hypoglycemia Heparin Sodium (Porcine) (Heparin) 5,000 unit SQ Q12 [facility] Last Admin: 04/23/19 10:27 Dose: 5,000 unit Documented by: Acetaminophen (Ofirmev) 650 mg in 65 mls @ 130 mls/hr IV Q6HP PRN; Protocol PRN Reason: Per Pain Protocol/Fever > 101 Magnesium Sulfate (Magnesium Sulfate) 2 gm in 50 mls @ 50 mls/hr IV UD PRN PRN Reason: MG = or < 1.7 Ceftriaxone Sodium 2 gm/ (Dextrose) 50 mls @ 100 mls/hr IV Q24H [facility]; Protocol Last Admin: 04/23/19 01:45 Dose: Not Given Documented by: Levofloxacin (Levaquin) 750 mg in 150 mls @ 100 mls/hr IV Q24H [facility]; Protocol Last Admin: 04/23/19 01:17 Dose: Not Given Documented by: Insulin Human Lispro (Humalog) 0 unit SQ [facility]; Protocol Last Admin: 04/23/19 08:24 Dose: 1 units Documented by: Iron Carb/Multivit/Warp Knitter Helper/Folic Acid (Multivitamin W/Minerals) 1 tab PO DAILY [facility] Last Admin: 04/23/19 10:25 Dose: 1 tab Documented by: Levothyroxine Sodium (Synthroid) 25 mcg PO QAMAC [facility] Last Admin: 04/23/19 07:22 Dose: 25 mcg Documented by: Melatonin (Melatonin 3mg Tablet) 3 mg PO HSP PRN PRN Reason: Insomnia Methylprednisolone Sodium Succinate (Solu-Medrol) 60 mg IV Q12 [facility] Last Admin: 04/23/19 10:31 Dose: 60 mg Documented by: Nicotine (Nicoderm) 21 mg TD Q24H [facility] Last Admin: 04/23/19 10:52 Dose: Not Given Documented by: Omeprazole (Prilosec) 20 mg PO ACB [facility] Last Admin: 04/23/19 07:21 Dose: 20 mg Documented by: Ondansetron HCl (Zofran) 4 mg IV Q4-6HP PRN; Protocol PRN Reason: Nausea And Vomiting Ondansetron HCl (Zofran Odt) 8 mg SL TID [facility] Last Admin: 04/23/19 10:52 Dose: Not Given Documented by: Fluticasone/Umeclidinium/Vilanterol [Trelegy Ellipta] 100/62.5/25 Mcg Inhaler 1 dose INH DAILY [facility] Last Admin: 04/23/19 10:28 Dose: 1 dose Documented by: Potassium Chloride (Klor-Con) 40 meq PO DAILYP PRN PRN Reason: K+ < 3.5 Senna/Docusate Sodium (Senna Plus Tablet) 1 tab PO HS [facility] Sodium Chloride (Saline Flush) 10 ml IV Q8 [facility] Last Admin: 04/23/19 05:07 Dose: 10 ml Documented by: Medical - PN: A/P - Time Spent With Patient Total time spent is greater than 50% in coordination of care (as documented) at patient's floor/unit and/or counseling patient: 25 - 35 minutes (1) COPD exacerbation Status: Acute Assessment and plan: * Acute exacerbation of COPD-with triad of dyspnea/increased purulence and increased sputum production. Clinical improvement noted the bronchodilators/steroids. Continue pulmonary toilet * Bronchiectasis with concerns of LESIA-ID consulted. Continue pulmonary toilet/postural drainage * History of pulmonary fibrosis patient follows outpatient with Dr. Jones pulmonology. Continue pulmonary toilet/supplemental oxygen * Respiratory alkalosis due to increase work of breathing and hyperventilation. Patient is a CO2 retainer. Louis corrected CO2 * History of hypothyroidism continue thyroxine * Neuropathy continue gabapentin * Hyperlipidemia continue statin * Degenerative joint disease continue hydrocodone at home dose * GERD continue PPI * Tobacco dependence continue current patch * Full code * Prophylaxis heparin Plan * De-escalate antibiotics per ID * Bronchodilators/steroids * Continue pre-existing medical condition management on home meds * PT OT/RT treatments/postural drainage * Discharge planning per case management Current Visit: Yes Medical - PN: Qual - VTE Deep Vein Thrombosis/Pulmonary Embolism Present on Admission: No
[2019-04-23] MEDS: HYDROcodone/APAP 10/325MG TABLET PO PRN ×2 (15:39→20:27)
--- NOTE | 2019-04-23 17:11 | Infectious Disease Consult ---
History of Present Illness Patient information: Note initiated : 04/23/19 at 5:07 pm Service Date, if different from initiated Date: [] Patient: Kassidy Dawson 73 y/o F admitted on 04/22/19 for shortness of breathe. Chief Complaint: [] Consult date: 04/23/19 Requesting Physician: Ramu Shirley Reason for Consult: SOB Chief complaint: I had running nose, increased SOB History of present illness: 73 year old lady with known Hx of severe COPD, on baseline O2 (2-4l), is readmitted after being discharged after treatment for pneumonia/COPD exacerbation in Mar 2019. Pt reports that after her discharge she started noticing increase in sputum production, needing more oxygen, running nose and overall inability to function. The sputum color was white initially with change to creamish few days ago, no blood. Endorsed body aches. She denied any fevers, chills, chest pain, n/v, diarrhea. She endorsed having sick caregiver few weeks ago with flu like symptoms. Initial work-up in the ER was consistent with acute COPD exacerbation. EKG reveals sinus rhythm. Chest CT shows centrilobular emphysema along with bronchiectasis right middle lobe consistent with chronic findings. Patient was continued on antibiotic coverage. Blood gas shows pH 7.53/40 1/87 on 4 L oxygen. She was started on IV Ceftriaxone and PO Levofloxacin. Review of Systems All systems PM: reviewed and no additional remarkable complaints except as stated Constitutional: as per HPI Past History Past family history: has a sick caregiver with flu like symptoms Past social history: current smoker: trying to quit using patches. Still smoking few cig/day Medications and Allergies Home Medications Medication Instructions Recorded Confirmed Type atorvastatin 20 mg tablet 20 mg PO DAILY 12/16/16 04/23/19 History gabapentin 300 mg capsule 600 mg PO TID cap 12/16/16 04/23/19 History levothyroxine 25 mcg tablet 25 mcg PO QAMCC 12/16/16 04/23/19 History nystatin 100,000 unit/gram topical 15 gm TOPICAL BID PRN 12/16/16 04/23/19 History cream oxygen 4 inh INH CONT 12/16/16 04/23/19 History hydrocodone 10 mg-acetaminophen 1 - 2 tab PO TID 01/12/17 04/23/19 History 325 mg tablet albuterol sulfate 2.5 mg/0.5 mL 2.5 mg INHALATION QHS PRN #60 each 10/11/18 04/23/19 Rx solution for nebulization chlorhexidine gluconate 0.12 % 15 ml MUCOUS MEM BID #900 ml 12/19/18 04/23/19 Rx mouthwash fluticasone fur. 100 mcg-umeclid 1 inh INHALATION QDAY #180 each 12/19/18 04/23/19 Rx 62.5 mcg-vilant 25 mcg inhalat.powder albuterol sulfate 90 mcg/actuation 2 inh INHALATION Q4H PRN #1 each 02/15/19 04/23/19 Rx breath activated powder inhaler omeprazole 20 mg tablet,delayed 20 mg PO QDAY tab 03/05/19 04/23/19 History release guaiFENesin [Guaifenesin ER] 1,200 mg PO BID 03/12/19 04/23/19 History nicotine 21 mg/24 hr daily 1 patch TRANSDERMA Q24H 03/21/19 04/23/19 History transdermal patch Estradiol [Divigel] 1 gm TOPICAL DAILY 04/23/19 04/23/19 History Tamsulosin [Flomax] 0.4 mg PO DAILY 04/23/19 04/23/19 History prednisoLONE [Prednisolone] 30 mg G-TUBE DAILY 04/23/19 04/23/19 History Allergies Allergy/AdvReac Type Severity Reaction Status Date / Time ioversol [From OPTIRAY 320] Allergy Intermediate Hives Verified 04/04/19 13:32 carbamazepine [From TEGRETOL] AdvReac Intermediate LOSS OF Verified 04/04/19 13:32 SELF-AWARENESS Penicillins AdvReac Mild SEVERE Verified 04/04/19 13:32 ITCHING Tetanus Vaccines and Toxoid AdvReac Mild INJ SITE Verified 04/04/19 13:32 SWELLING, AND JAW PAIN SILK TAPE AdvReac Mild BLISTERS, Uncoded 03/05/19 15:00 TEARS SKIN Physical Examination Vital signs: Temp Pulse Resp BP Pulse Ox 36.6 C 82 18 100/47 92 04/23/19 12:00 04/23/19 15:16 04/23/19 15:16 04/23/19 12:00 04/23/19 12:00 General appearance: no acute distress Eyes pulmonary: nonicteric ENT: oropharynx moist, other (no thrush) Auscultation: bilateral: diminished breath sounds (has bibasilar wheezing) Cardiovascular: other (s1 s2 normal) Integumentary: normal normal mental status, non-focal exam (overall thin) Results - Laboratory Findings CBC and BMP: 04/23/19 04:25 04/23/19 04:25 Abnormal lab findings: Abnormal Labs 04/22/19 04/22/19 04/22/19 19:14 19:14 21:20 WBC 14.0 H Hgb RDW 16.5 H MPV 7.2 L Gran % 93.7 H Lymph % (Auto) 4.7 L Gran # 13.1 H Lymph # (Auto) 0.7 L Seg Neutrophils % Lymphocytes % Reactive Lymphocytes Anisocytosis Chloride 93 L Carbon Dioxide Glucose 154 H NT-Pro-B Natriuret Pep 242.3 H Globulin 4.5 H Albumin/Globulin Ratio 0.9 L Urine Bacteria Few A 04/23/19 04/23/19 04:25 04:25 WBC Hgb 11.6 L RDW 16.6 H MPV 7.0 L Gran % Lymph % (Auto) Gran # Lymph # (Auto) Seg Neutrophils % 93 H Lymphocytes % 4 L Reactive Lymphocytes 3 H Anisocytosis 1+ A Chloride 95 L Carbon Dioxide 32 H Glucose 147 H NT-Pro-B Natriuret Pep Globulin 4.1 H Albumin/Globulin Ratio 0.9 L Urine Bacteria Microbiology: Microbiology 04/23/19 Unknown Nasopharynx Respiratory Panel (PCR) - Final 04/23/19 Unknown Nasopharynx Respiratory Virus Panel (PCR) - Final 04/23/19 Unknown Nose - Both Right and Left MRSA (PCR) - Final 04/22/19 21:20 Urine - Clean Void [facility] Urine Culture - Preliminary 04/23/19 01:00 Sputum - Expectorated Gram Stain - Final Assessment and Plan - Narrative A/P Narrative: A: 1. Acute COPD exacerbation: sec to Rhinovirus infection, confirmed on respiratory viral panel - history +ve for a flu-like infection in caregiver recently - in absence of s/s of acute bacterial infection; antibiotics could be stopped 2. Active smoking Recommendations: - continue droplet precautions - stop antibiotics - suggest outpt f/u with Dr. Jones for COPD management, pulm rehab - suggest outpt f/u with Dr. Harper for smoking cessation - pt should get a flu shot before discharge - will initiate a discussion about Azithromycin prophylaxis with pt tomorrow for prevention of COPD exacerbations (antibacterial, anti-inflammatory effects) and discuss side effects (resistance, GI side effects, hearing) will follow Mando Sahu MD Infectious diseases
[2019-04-23] MEDS ORDERED: SENNOSIDES/DOCUSATE SODIUM 1 TAB TABLET PO SCH (21:00)
[2019-04-23] MEDS ORDERED: TAMSULOSIN 0.4 MG CAPSULE PO SCH (21:00)
[2019-04-23] MEDS: CHLORHEXIDINE GLUCONATE 1 ML ORAL.SOL SWABMOUTH SCH (21:17)
[2019-04-24] MEDS: HYDROcodone/APAP 10/325MG TABLET PO PRN ×2 (01:25→08:18)
[2019-04-24] MEDS: IPRATROPIUM/ALBUTEROL 3 ML AMPUL.NEB NEB SCH ×3 (03:07→11:07)
[2019-04-24] MEDS: 0.9 % SODIUM CHLORIDE 10 ML SYRINGE IV SCH ×2 (06:12→09:30)
[2019-04-24 06:17] LABS: Hematocrit 32.6 % (36.0-48.0); Hemoglobin 10.7 g/dL (12.0-15.0); Mean Cell Volume 89.9 fL (80.0-100.0); Mean Corpuscular HGB Conc 32.8 g/dL (31.0-36.0); Mean Platelet Volume 7.4 fL (7.4-10.4); Platelet Count 293 K/mcL (140-440); RBC 3.63 M/mcL (4.00-5.20)
[2019-04-24 06:55] LABS: ALT/SGPT 12 U/l (0-40); AST/SGOT 14 U/l (0-37); Albumin 3.4 gm/dL (3.2-5.2); Albumin/Globulin Ratio 0.9 (1.0-2.3); Alkaline Phosphatase 55 U/L (39-117); Bilirubin,Direct < 0.2 mg/dL (0.0-0.3); Bilirubin,Total < 0.2 mg/dL (0.0-1.0); Blood Urea Nitrogen 28 mg/dl (8-23); Calcium 8.7 mg/dl (8.6-10.4); Carbon Dioxide 29 mmol/L (22-30); Chloride 94 mmol/L (96-108); Globulin 3.7 gm/dL (2.2-3.7); Glomerular Filtration Rate 64; Glucose 250 mg/dL (70-105); Lactate Dehydrogenase 131 U/L (94-250); Phosphorous 2.3 mg/dL (2.7-4.5); Triglycerides 66 mg/dl (<150); Uric Acid 4.4 mg/dL (2.5-8.0)
[2019-04-24] MEDS: BUDESONIDE 0.5 MG/2 ML AMPUL.NEB NEB SCH (07:14)
[2019-04-24 07:28] LABS: Anisocytosis 1+ (NONE SEEN); Lymphocytes % 5 % (15-49); Monocytes % (Manual) 2 % (1-12); Platelet Estimate NORMAL (NORMAL); RBC Morphology ABNORM (NORMAL); Segmented Neutrophils % 93 % (38-78)
[2019-04-24] MEDS: LEVOTHYROXINE 25 MCG TABLET PO SCH (07:38)
[2019-04-24] MEDS: OMEPRAZOLE 20 MG CAPSULE PO SCH (07:38)
[2019-04-24] MEDS: INSULIN LISPRO 1 UNIT/0.01 ML UNIT SQ SCH ×2 (08:17→14:29)
[2019-04-24] MEDS: HEPARIN 5,000 UNIT/ML VIAL SQ SCH (09:27)
[2019-04-24] MEDS: methylPREDNISolone SOD SUCC 125 MG/2 ML VIAL IV SCH (09:28)
[2019-04-24] MEDS: CHLORHEXIDINE GLUCONATE 1 ML ORAL.SOL SWABMOUTH SCH (09:29)
[2019-04-24] MEDS: MULTIVIT,THER IRON,CA,FA & MIN 1 TABLET PO SCH (09:29)
[2019-04-24] MEDS: UMECLIDINIUM INH SCH (09:29)
[2019-04-24] MEDS: VILANTEROL INH SCH (09:29)
[2019-04-24] MEDS: FLUTICASONE INH SCH (09:29)
[2019-04-24] MEDS: GABAPENTIN 300 MG CAPSULE PO SCH (09:30)
[2019-04-24] MEDS: DOCUSATE SODIUM 100 MG CAPSULE PO SCH (09:30)
[2019-04-24] MEDS: ATORVASTATIN 20 MG TABLET PO SCH (09:30)
[2019-04-24] MEDS ORDERED: FLU VACC QS2019-20(6MOS UP)/PF 60 MCG/0.5 ML SYRINGE IM ONE (10:00)
--- NOTE | 2019-04-24 10:13 | Discharge Summary ---
Medical - DS: Prov Patient information: Note initiated : 04/24/19 at 10:10 am Service Date, if different from initiated Date: [] Patient: Kassidy Dawson 73 y/o F admitted on 04/22/19 for shortness of breathe. Chief Complaint: [] Date of admission: 04/22/19 23:41 Discharge date: 04/24/19 Primary care physician: Josseline Kyle Consults: 04/23/19 07:50 Consult to Physician [CONS] Routine Comment: Consulting Provider: Ramu Shirley Reason For Exam: Physician to Consult 04/23/19 11:06 Consult to Physician [CONS] Routine Comment: Consulting Provider: Mando Sahu Reason For Exam: Physician to Consult Medical - DS: Meds - Discharge Medications Active and Home Medications: Home Medications atorvastatin 20 mg tablet 20 mg PO DAILY 12/16/16 [History Confirmed 04/23/19 Last Taken 04/22/19 08:00] gabapentin 300 mg capsule 600 mg PO TID cap 12/16/16 [History Confirmed 04/23/19 Last Taken 04/22/19 08:00] levothyroxine 25 mcg tablet 25 mcg PO QAMCC 12/16/16 [History Confirmed 04/23/19 Last Taken 04/22/19 08:00] nystatin 100,000 unit/gram topical cream 15 gm TOPICAL BID PRN 12/16/16 [History Confirmed 04/23/19 Last Taken 06/19/17] oxygen 4 inh INH CONT 12/16/16 [History Confirmed 04/23/19 Last Taken 04/23/19 00:23 4 L] hydrocodone 10 mg-acetaminophen 325 mg tablet 1 - 2 tab PO TID 01/12/17 [History Confirmed 04/23/19 Last Taken 04/22/19 23:00] albuterol sulfate 2.5 mg/0.5 mL solution for nebulization 2.5 mg INHALATION QHS PRN #60 each 10/11/18 [Rx Confirmed 04/23/19 Last Taken 04/22/191999] chlorhexidine gluconate 0.12 % mouthwash 15 ml MUCOUS MEM BID #900 ml 12/19/18 [Rx Confirmed 04/23/19 Last Taken 04/22/19 08:00] fluticasone fur. 100 mcg-umeclid 62.5 mcg-vilant 25 mcg inhalat.powder 1 inh INHALATION QDAY #180 each 12/19/18 [Rx Confirmed 04/23/19 Last Taken 04/22/19 08:00] albuterol sulfate 90 mcg/actuation breath activated powder inhaler 2 inh INHALATION Q4H PRN #1 each 02/15/19 [Rx Confirmed 04/23/19 Last Taken 04/22/19 20:00] omeprazole 20 mg tablet,delayed release 20 mg PO QDAY tab 03/05/19 [History Confirmed 04/23/19 Last Taken 04/22/19 08:00] guaiFENesin [Guaifenesin ER] 1,200 mg PO BID 03/12/19 [History Confirmed 04/23/19 Last Taken 04/22/19 08:00] nicotine 21 mg/24 hr daily transdermal patch 1 patch TRANSDERMA Q24H 03/21/19 [History Confirmed 04/23/19 Last Taken Unknown] Estradiol [Divigel] 1 gm TOPICAL DAILY 04/23/19 [History Confirmed 04/23/19 Last Taken Unknown] Tamsulosin [Flomax] 0.4 mg PO DAILY 04/23/19 [History Confirmed 04/23/19 Last Taken Unknown] prednisoLONE [Prednisolone] 30 mg G-TUBE DAILY 04/23/19 [History Confirmed 04/23/19 Last Taken 04/22/19 08:00] Medical - DS: Hosp Hospital Course: Discharge diagnosis * Acute exacerbation of COPD-with triad of dyspnea/increased purulence and increased sputum production. Clinical improvement noted the bronchodilators/steroids. Continue additional 5 days oral steroid. Appears back at baseline. * Bronchiectasis with concerns of LESIA-ID consulted. Recommends follow-up with pulmonology/possible long-term suppressive azithromycin. * History of pulmonary fibrosis patient follows outpatient with Dr. Jones pulmonology. On home dose oxygen * Respiratory alkalosis due to increase work of breathing and hyperventilation. Patient is a CO2 retainer. * History of hypothyroidism managed on home dose thyroxine * Neuropathy stable on gabapentin * Hyperlipidemia managed on statin * Degenerative joint disease stable on hydrocodone at home dose * GERD continue PPI * Tobacco dependence smoking cessation counseling performed. Brief hospital course Ms. Dawson is a 73 year old F with a known history of O2 dependent COPD who was recently hospitalized mid-March and was discharged after treatment for pneumonia and COPD exacerbation. Patient has been on antibiotics including azithromycin and subsequently another round of Levaquin. Despite treatment patient has not seen any significant improvement and has gotten progressively short of breath, orthopneic and inability to function. Symptoms associated with increasing yellow productive sputum increasing cough. She normally uses 4 L oxygen but has failed to get any benefit despite increasing flow. she denies associated pleurisy/chest pain/fever or chills. She further denies weight gain. She appears remarkably anxious. Patient follows up with pulmonary clinic with Dr. Jones as outpatient. Initial work-up in the ER was consistent with acute COPD exacerbation. EKG reveals sinus rhythm. Chest CT shows centrilobular emphysema along with bronchiectasis right middle lobe consistent with chronic findings. Patient was continued on antibiotic coverage. Blood gas shows pH 7.53/40 on 4 L oxygen. Subsequently hospitalist service was consulted in light of increased work of breathing/COPD flare. At the time of evaluation patient is alert and oriented. She feels slightly better. She denies Recent diarrhea, dysuria, headache, photophobia. She endorses to history as above. Continues to smoke. 04/23-patient feeling a lot better. White count down to 7000 from 14. On bronchodilators and steroids. Much improved respiratory status. Improved anxiety. No overnight fever chills. Productive sputum. ID consulted in light of concerns of LESIA with underlying bronchiectasis. Patient came back positive for rhinovirus. Antibiotics discontinued. Recommend droplet precautions. 04/24 -patient doing well. No overnight events. No concerns per staff. Feels at baseline. Requesting discharge. Detailed discharge instruction as below. ID recommends follow-up with pulmonology in possible long-term azithromycin for prophylaxis in light of bronchiectasis. Continue additional 5 days oral prednisone. Discharge diagnosis: . - Time Spent with Patient Total time spent providing and/or coordinating discharge services: Greater than 30 minutes Medical - DS: Exam - Constitutional Vitals: Vital Signs Temp Pulse Pulse Resp BP Pulse Ox 04/24/19 07:52 98.6 F 82 16 100/51 94 04/24/19 07:17 91 H 12 94 04/24/19 03:05 98.5 F 91 H 14 124/63 94 04/24/19 02:36 22 04/23/19 23:17 98.2 F 81 16 125/56 92 04/23/19 22:51 85 18 04/23/19 20:00 22 04/23/19 19:33 98.2 F 85 14 115/57 95 04/23/19 19:14 84 20 04/23/19 18:35 22 04/23/19 16:00 97.5 F 82 18 114/61 93 04/23/19 15:16 82 18 04/23/19 12:00 97.8 F 69 16 100/47 92 04/23/19 11:35 61 12 91 Intake and Output 04/23/19 04/24/19 04/24/19 21:59 05:59 13:59 Intake Total 300 2700 240 Output Total 750 Balance 300 1950 240 Intake: Oral 300 1000 240 Tube Feeding 1200 GI Tube Flush 500 Output: Void Amount 750 Other: Meal Dinner Breakfast Percent of Meal Consumed 25% 25% Feeding Ability Assist with Tray Set Up Independent Urine Appearance Clear Clear Urine Color Bright Yellow Bright Yellow Urine Odor Normal Normal Weight 128 lb 12.8 oz Medical - DS: Data Labs on day of discharge: Labs from last 24 hours 04/24/19 04/24/19 04:40 04:40 WBC 10.0 RBC 3.63 L Hgb 10.7 L Hct 32.6 L MCV 89.9 MCH 29.5 MCHC 32.8 RDW 17.0 H Plt Count 293 MPV 7.4 Total Counted 100 Seg Neutrophils % 93 H Band Neutrophils % Not Reportable Lymphocytes % 5 L Monocytes % (Manual) 2 Platelet Estimate Normal RBC Morphology Abnorm A Anisocytosis 1+ A Sodium 134 Potassium 4.2 Chloride 94 L Carbon Dioxide 29 Anion Gap 11.0 BUN 28 H Creatinine 0.9 GFR Calculation 64 Glucose 250 H Uric Acid 4.4 Calcium 8.7 Phosphorus 2.3 L Magnesium 1.8 Total Bilirubin < 0.2 Direct Bilirubin < 0.2 GGT 11 AST 14 ALT 12 Alkaline Phosphatase 55 Lactate Dehydrogenase 131 Total Protein 7.1 Albumin 3.4 Globulin 3.7 Albumin/Globulin Ratio 0.9 L Triglycerides 66 Preliminary micro results at discharge 04/22/19 19:26 Blood Culture - Preliminary Blood 04/22/19 19:32 Blood Culture - Preliminary Blood 04/22/19 21:20 Urine Culture - Preliminary Urine - Clean Void [facility] Medical - DS: A/P - Patient/Caregiver Discharge Instructions Activity: increase activity as tolerated Diet: Regular Diet Additional Instructions: Refrain from smoking Continue prednisone for 5 days Follow-up with pulmonology as outpatient in 1 to 2 weeks Follow-up PCP in 7 to 10 days Recommendations from ID physician: - continue droplet precautions - suggest outpt f/u with Dr. Jones for COPD management, pulm rehab - suggest outpt f/u with Dr. Harper for smoking cessation - pt should get a flu shot before discharge Prescriptions: predniSONE [Prednisone] 20 mg PO [facility] #5 tab Transmission Status: Pending to [facility] - Problem Maintenance (1) COPD exacerbation Status: Acute - Follow up Plan Follow up with: Josseline Kyle ARNP [Primary Care Provider] - Disposition: Home, Self-Care Prognosis: Fair Rehab Potential: Fair I certify that the patient requires SNF services: No Overall status at discharge: patient is progressing back to baseline Medical - DS: Qual - VTE Deep Vein Thrombosis/Pulmonary Embolism Present on Admission: No
[2019-04-24] MEDS: NICOTINE 21 MG PATCH TD SCH (10:50)
--- NOTE | 2019-04-24 11:17 | Infectious Disease Prog Note ---
Subjective Patient information: Note initiated : 04/24/19 at 11:11 am Service Date, if different from initiated Date: [] Patient: Kassidy Dawson 73 y/o F admitted on 04/22/19 for shortness of breathe. Chief Complaint: [] Interval history: Pt feels better, back to baseline. Denied any fever, chills, n/v, diarrhea. Shared info about azithromycin prophylaxis for prevention of COPD exacerbations, and side effects of azithromycin inc hearing loss (rarely). Discussed details about f/u in 1 [place]. Objective Objective Narrative: ao x 3, in nad no signs of resp distress: nasal flaring, use of accessory resp muscles chest has VBS with bibasilar wheezing s1 s2 normal bs ++, nttd - Vital Signs Vital signs: Vital Signs Temp Pulse Pulse Resp BP Pulse Ox 04/24/19 11:08 91 04/24/19 11:07 91 H 16 04/24/19 07:52 37.0 C 82 16 100/51 94 04/24/19 07:17 91 H 12 94 04/24/19 03:05 36.9 C 91 H 14 124/63 94 04/24/19 02:36 22 04/23/19 23:17 36.8 C 81 16 125/56 92 04/23/19 22:51 85 18 04/23/19 20:00 22 04/23/19 19:33 36.8 C 85 14 115/57 95 04/23/19 19:14 84 20 04/23/19 18:35 22 04/23/19 16:00 36.4 C 82 18 114/61 93 04/23/19 15:16 82 18 04/23/19 12:00 36.6 C 69 16 100/47 92 04/23/19 11:35 61 12 91 Intake and Output 04/23/19 04/24/19 04/24/19 21:59 05:59 13:59 Intake Total 300 2700 240 Output Total 750 Balance 300 1950 240 Intake: Oral 300 1000 240 Tube Feeding 1200 GI Tube Flush 500 Output: Void Amount 750 Other: Meal Dinner Breakfast Percent of Meal Consumed 25% 25% Feeding Ability Assist with Tray Set Up Independent Urine Appearance Clear Clear Urine Color Bright Yellow Bright Yellow Urine Odor Normal Normal Weight 58.423 kg Intake & Output: Intake & Output 04/23/19 04/24/1904/24/19 21:59 05:59 13:59 Intake Total 300 2700 240 Output Total 750 Balance 300 1950 240 Weight 58.423 kg Intake: Oral 300 1000 240 Tube Feeding 1200 GI Tube Flush 500 Output: Void Amount 750 Other: Meal Dinner Breakfast Percent of Meal Consumed 25% 25% Feeding Ability Assist with Tray Set Up Independent Urine Appearance Clear Clear Urine Color Bright Yellow Bright Yellow Urine Odor Normal Normal - Lab 04/24/19 04:40 04/24/19 04:40 Most recent lab results Calcium 8.7 mg/dl (8.6-10.4) 04/24/19 04:40 Phosphorus 2.3 mg/dL (2.7-4.5) L 04/24/19 04:40 Magnesium 1.8 mg/dL (1.6-2.5) 04/24/19 04:40 Microbiology 04/22/19 21:20 Urine - Clean Void Mid-Stream Urine Culture - Preliminary Enterococcus species 04/22/19 19:26 Blood Blood Culture - Preliminary 04/22/19 19:32 Blood Blood Culture - Preliminary 04/23/19 Unknown Nasopharynx Respiratory Panel (PCR) - Final 04/23/19 Unknown Nasopharynx Respiratory Virus Panel (PCR) - Final 04/23/19 Unknown Nose - Both Right and Left MRSA (PCR) - Final 04/23/19 01:00 Sputum - Expectorated Gram Stain - Final Medications Active Medications: Acetaminophen (Tylenol) 650 mg PO Q4-6HP PRN; Protocol PRN Reason: Per Pain Protocol/Fever > 101 Hydrocodone Bitart/Acetaminophen ([place] 10/325mg) 1 - 2 tab PO TIDP PRN; Protocol PRN Reason: Pain Last Admin: 04/24/19 08:18 Dose: 2 tab Documented by: [email or web address] Admin: 04/24/19 01:25 Dose: 2 tab Documented by: Admin: 04/23/19 20:27 Dose: 1 tab Documented by: Admin: 04/23/19 15:39 Dose: 2 tab Documented by: MISAEL Albuterol/Ipratropium (Duoneb) 3 ml NEB Q4HRT GERMAINE Last Admin: 04/24/19 11:07 Dose: 3 ml Documented by: Admin: 04/24/19 07:14 Dose: 3 ml Documented by: Admin: 04/24/19 03:07 Dose: 3 ml Documented by: Admin: 04/23/19 22:51 Dose: 3 ml Documented by: Admin: 04/23/19 19:14 Dose: 3 ml Documented by: Admin: 04/23/19 15:16 Dose: 3 ml Documented by: Admin: 04/23/19 11:34 Dose: 3 ml Documented by: Admin: 04/23/19 07:37 Dose: 3 ml Documented by: Admin: 04/23/19 03:02 Dose: 3 ml Documented by: SAMUEL Atorvastatin Calcium (Lipitor) 20 mg PO DAILY [facility] Last Admin: 04/24/19 09:30 Dose: 20 mg Documented by: Admin: 04/23/19 10:26 Dose: 20 mg Documented by: TONIO Cosigned by: MISAEL Budesonide (Pulmicort) 0.5 mg NEB Q12 [facility] Last Admin: 04/24/19 07:14 Dose: 0.5 mg Documented by: Admin: 04/23/19 19:14 Dose: 0.5 mg Documented by: Admin: 04/23/19 07:37 Dose: 0.5 mg Documented by: BE Chlorhexidine Gluconate (Peridex) 15 ml SWABMOUTH BID [facility] Last Admin: 04/24/19 09:29 Dose: 15 ml Documented by: Admin: 04/23/19 21:17 Dose: 15 ml Documented by: ZACKARY Dextrose (Dextrose 50%) 0 ml IV UD PRN PRN Reason: Hypoglycemia Diagnostic Test (Pha) (Accu-Chek) 1 each FS ACHS [facility] Last Admin: 04/24/19 07:40 Dose: 1 each Documented by: Admin: 04/23/19 21:29 Dose: 1 each Documented by: Admin: 04/23/19 17:05 Dose: 1 each Documented by: Admin: 04/23/19 12:10 Dose: 1 each Documented by: Admin: 04/23/19 07:30 Dose: 1 each Documented by: TONIO Cosigned by: MISAEL Docusate Sodium (Colace) 100 mg PO BID [facility] Last Admin: 04/24/19 09:30 Dose: Not Given Documented by: MARLENI Non-Admin Reason: Loose Stool Admin: 04/23/19 21:16 Dose: Not Given Documented by: ZACKARY Non-Admin Reason: Patient Refused Admin: 04/23/19 10:26 Dose: 100 mg Documented by: TONIO Cosigned by: MISAEL Gabapentin (Neurontin) 600 mg PO TID [facility] Last Admin: 04/24/19 09:30 Dose: 600 mg Documented by: Admin: 04/23/19 21:19 Dose: 600 mg Documented by: ZACKARY Glucose (Insta-Glucose) 15 gm PO PRN PRN PRN Reason: Hypoglycemia Heparin Sodium (Porcine) (Heparin) 5,000 unit SQ Q12 [facility] Last Admin: 04/24/19 09:27 Dose: 5,000 unit Documented by: Admin: 04/23/19 21:18 Dose: 5,000 unit Documented by: Admin: 04/23/19 10:27 Dose: 5,000 unit Documented by: TONIO Cosigned by: MISAEL Acetaminophen (Ofirmev) 650 mg in 65 mls @ 130 mls/hr IV Q6HP PRN; Protocol PRN Reason: Per Pain Protocol/Fever > 101 Last Admin: 04/23/19 23:45 Dose: 130 mls/hr Documented by: ZACKARY Magnesium Sulfate (Magnesium Sulfate) 2 gm in 50 mls @ 50 mls/hr IV UD PRN PRN Reason: MG = or < 1.7 Insulin Human Lispro (Humalog) 0 unit SQ ACHS [facility]; Protocol Last Admin: 04/24/19 08:17 Dose: 2 units Documented by: Admin: 04/23/19 21:30 Dose: Not Given Documented by: ZACKARY Non-Fernando Reason: No Coverage Needed Admin: 04/23/19 17:05 Dose: Not Given Documented by: MISAEL Non-Admin Reason: Clinical Judgement Admin: 04/23/19 13:00 Dose: 1 units Documented by: Admin: 04/23/19 08:24 Dose: 1 units Documented by: MISAEL Iron Carb/Multivit/Wolsey/Folic Acid (Multivitamin W/Minerals) 1 tab PO DAILY [facility] Last Admin: 04/24/19 09:29 Dose: 1 tab Documented by: Admin: 04/23/19 10:25 Dose: 1 tab Documented by: TONIO Cosigned by: MISAEL Levothyroxine Sodium (Synthroid) 25 mcg PO QAMAC [facility] Last Admin: 04/24/19 07:38 Dose: 25 mcg Documented by: Admin: 04/23/19 07:22 Dose: 25 mcg Documented by: TONIO Cosigned by: MISAEL Melatonin (Melatonin 3mg Tablet) 3 mg PO HSP PRN PRN Reason: Insomnia Methylprednisolone Sodium Succinate (Solu-Medrol) 60 mg IV Q12 [facility] Last Admin: 04/24/19 09:28 Dose: 60 mg Documented by: Admin: 04/23/19 21:17 Dose: 60 mg Documented by: Admin: 04/23/19 10:31 Dose: 60 mg Documented by: TONIO Cosigned by: MISAEL Nicotine (Nicoderm) 21 mg TD Q24H [facility] Last Admin: 04/24/19 10:50 Dose: 21 mg Documented by: Admin: 04/23/19 10:52 Dose: Not Given Documented by: MISAEL Non-Admin Reason: placed on patient early Admin: 04/23/19 07:34 Dose: 21 mg Documented by: TONIO Cosigned by: MISAEL Omeprazole (Prilosec) 20 mg PO ACB [facility] Last Admin: 04/24/19 07:38 Dose: 20 mg Documented by: Admin: 04/23/19 07:21 Dose: 20 mg Documented by: TONIO Cosigned by: MISAEL Ondansetron HCl (Zofran) 4 mg IV Q4-6HP PRN; Protocol PRN Reason: Nausea And Vomiting Fluticasone/Umeclidinium/Vilanterol [Trelegy Ellipta] 100/62.5/25 Mcg Inhaler 1 dose INH DAILY [facility] Last Admin: 04/24/19 09:29 Dose: 1 dose Documented by: [email or web address] Admin: 04/23/19 10:28 Dose: 1 dose Documented by: TONIO Cosigned by: MISAEL Potassium Chloride (Klor-Con) 40 meq PO DAILYP PRN PRN Reason: K+ < 3.5 Senna/Docusate Sodium (Senna Plus Tablet) 1 tab PO [facility] Admin: 04/23/19 21:16 Dose: Not Given Documented by: ZACKARY Non-Admin Reason: Patient Refused Sodium Chloride (Saline Flush) 10 ml IV Q8 [facility] Last Admin: 04/24/19 09:30 Dose: 10 ml Documented by: [email or web address] Admin: 04/24/19 06:12 Dose: Not Given Documented by: ZACKARY Non-Admin Reason: Patient Asleep Admin: 04/23/19 21:32 Dose: 10 ml Documented by: Admin: 04/23/19 14:46 Dose: 10 ml Documented by: Admin: 04/23/19 05:07 Dose: 10 ml Documented by: Admin: 04/23/19 01:38 Dose: 10 ml Documented by: SAMUEL Tamsulosin HCl (Flomax) 0.4 mg PO [facility] Last Admin: 04/23/19 21:18 Dose: 0.4 mg Documented by: ZACKARY Assessment and Plan - Narrative A/P Narrative: A: 1. Acute COPD exacerbation: sec to Rhinovirus infection, confirmed on respiratory viral panel - history +ve for a flu-like infection in caregiver recently - no signs/symptoms to suggest pneumonia. 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 Active smoking 3. Vaccination for Flu 4. Hx of penicillin allergy: pt mentions she is not allergic, it was her mother who was allergic. Mentions having no symptoms in past when she took penicillin Recommendations: - continue droplet precautions - flu shot given today - Pt counseled to quit smoking. - suggest outpt f/u with Dr. Jones for COPD management, pulm rehab - suggest outpt f/u with Dr. Harper for smoking cessation - start PO Azithromycin 250 mg once daily as prophylaxis for prevention of COPD exacerbations. Counseled about potential side-effects, pt agreeable to start Azithromycin - pt not penicillin allergic, allergy removed from chart will follow in ID clinic in [facility] Mando Sahu MD Infectious diseases
== END 2019-04-24 13:15 | disposition home or self-care (01) ==
LOC: MEDSUR 18:51 → ED 18:51 → MEDSUR 23:41
PROVIDERS: ADMIT Internal Medicine; ATTEND Internal Medicine